=== PATIENT | male | born 1960 | race Caucasian/White ===

== ENCOUNTER 2023-04-26 06:31 | Day surgery (SDC) | payer BC, SELFPAY ==
--- NOTE | 2023-04-04 11:43 | CM ---
Patient is scheduled for an elective L Reverse TSA on 04/26/23- he is a same day patient. Spoke with patient's , Kizzy (who is a PT), prior to surgery. Introduced role of Orthopedic Navigator. She reports that she, patient, their son and
lhirwtin-vl-ycq live in a two story home. There is a ramp to enter and a stair glide to the second floor. He currently stays on the first floor. Patient is a T6 incomplete paraplegic. Currently he requires assist with getting in/out of the shower
but otherwise functions independently. He uses a power wheel chair. He also has a rolling walker, commode, shower seat and raised toilet seat. PCP is Dr. Robby Pierce.
Discussed orthopedic program and post surgical plans. Patient will return home when directed by surgeon. Reviewed MD follow up and transition to outpatient therapy. She is in agreement with tentative plan and states that she will be home with
patient, along with their son and gwbiqivo-vq-rnb. They will be able to assist patient if needed.
Patient will complete online education.
Plan: Orthopedic Navigator will be involved in the care of patient after surgery and will reassess discharge needs at that time.
[2023-04-11 09:21] VITALS: BMI 39.0
[2023-04-11 09:40] VITALS: BMI 39.0
[2023-04-11 10:52] LABS: Hematocrit 37.5 % (39.0-52.0); Hemoglobin 12.2 g/dL (13.0-18.0); Mean Corp Hgb Conc. 32.5 g/dL (33.0-37.0); Mean Corpuscular Hgb 32.9 pg (27.0-31.0); Mean Corpuscular Volume 101.1 fL (80.0-94.0); Mean Platelet Volume 12.4 fL (7.4-10.4); Platelet Count 187 10^3/uL (130-400); Red Blood Cell Count 3.71 10^6/uL (4.70-6.10); Red Cell Dist. Width 13.2 % (11.5-14.5); White Blood Cell Count 6.1 10^3/uL (4.8-10.8)
[2023-04-11 11:03] LABS: ALT (SGPT) 21 U/L (0-50); AST (SGOT) 29 U/L (17-59); Albumin 3.8 g/dl (3.5-5.0); Alkaline Phosphatase 111 U/L (38-126); Blood Urea Nitrogen 28 mg/dl (9-20); Calcium 9.1 mg/dl (8.4-10.2); Carbon Dioxide 31 mmol/L (22-30); Chloride 102 mmol/L (98-107); Estimated Creatinine Clearance 95 ml/min; Glucose 85 mg/dl (70-99); Sodium 140 mmol/L (135-145); Total Bilirubin 0.4 mg/dl (0.2-1.3); Total Protein 5.7 g/dl (6.3-8.2); eGFR > 60.00
[2023-04-11 12:21] LABS: Glycohemoglobin (HgbA1c) 5.4 % (4.0-5.6)
[2023-04-11 15:54] VITALS: BMI 39.0
[2023-04-26] VITALS (29 sets, daily range): BP systolic 80–158; BP diastolic 52–134
--- NOTE | 2023-04-26 06:41 | W.DS.TRANS ---
DC Summary - P[employer]asing [employer]
-
Discharge Instructions:
Discharge Diagnosis/Procedures L Reverse ANDRADE Suggs 04/26/23
Diet As tolerated
Activity No strenuous activity
Driving Restrictions No driving
Instructions:
Stand-Alone Forms:
Changes to Home Medications: No
Discharge Medications:
DC Medications w/original date entered in [employer]
cholecalciferol (vitamin D3) 25 mcg (1,000 unit) capsule (Vitamin D3) 1,000 unit PO DAILY 04/24/09
omega-3 fatty acids-fish oil 340 mg-1,000 mg capsule (Fish Oil) 1 cap PO BID 04/24/09
pregabalin 200 mg capsule (Lyrica) 200 mg PO BID 04/24/09
glucosamine BDk-U1-Rmslulhoj victoria 1,500 mg-400 unit-100 mg tablet (Osteo Bi-Flex (5-Loxin)) 1 ea PO BID 11/06/13
vilazodone 40 mg tablet (Viibryd) 40 mg PO DAILY 11/06/13
fentanyl 50 mcg/hr transdermal patch 50 mcg transdermal Q24H 01/14/20
montelukast 10 mg tablet 10 mg PO DAILY 01/14/20
multivitamin 1 ea PO DAILY 01/14/20
tamsulosin 0.4 mg capsule 0.4 mg PO HS 01/14/20
vit C 250 mg-vit E 90 mg-zinc 40 mg-copper 1 km-radqbt-xmvzfy capsule (PreserVision AREDS-2) 1 ea PO BID 01/14/20
pregabalin 200 mg capsule (Lyrica) 400 mg PO HS 01/15/20
clonazepam 1 mg tablet (Klonopin) 1.5 mg PO HS 04/04/23
cyanocobalamin (vitamin B-12) 1,000 mcg capsule 1,000 mcg PO DAILY 04/04/23
doxycycline hyclate 100 mg tablet 100 mg PO BID 04/04/23
fluconazole 200 mg tablet 200 mg PO DAILY 04/04/23
guselkumab 100 mg/mL subcutaneous auto-injector (Tremfya) 100 mg SC Q8W 04/04/23
metaxalone 800 mg tablet 800 mg PO TID 04/04/23
oxymorphone 5 mg tablet 5 mg PO TID 04/04/23
lisinopril 10 mg tablet 10 mg PO BID 04/11/23
mupirocin 2 % topical ointment 1 applic topical BID infection prevention #1 tube 04/11/23
prednisone 10 mg tablet 10 mg PO DAILY 04/11/23
aspirin 325 mg tablet 325 mg PO DAILY blood clot prevention #1 tab 04/26/23
diclofenac potassium 25 mg capsule (Zipsor) 25 mg PO BID #0 caps 04/26/23
docusate sodium 100 mg capsule (Colace) 100 mg PO BID stool softner #1 cap 04/26/23
magnesium hydroxide 400 mg/5 mL oral suspension (Milk of Magnesia) 30 ml PO HS PRN Constipation #1 mL 04/26/23
sennosides 8.6 mg tablet (Senokot) 17.2 mg PO BID laxative #2 tabs 04/26/23
Home Medication Changes
Pending Results: No
[2023-04-26] MEDS: TYLENOL 1000 MG PO (10:46)
[2023-04-26] MEDS: BACTROBAN NASAL 1 GRAM NASAL (10:46)
[2023-04-26] MEDS: NORMOSOL-R 1000 IV (10:49)
[2023-04-26] MEDS: ANCEF 5 IV (17:33)
--- NOTE | 2023-04-26 17:33 | PTCARENOTE ---
Addendum: During patient stay in PACU he was very difficult, non compliant to care rendered. Emotional support provided with explanations of treatments. Patient remained agitated and angry during stay and demanded discharge. He was given an
Incentive spirometer and would not open his eyes while teaching was rendered. Upon utilizing the IS he spit it out and refused to use. VSS stable and back to baseline, per Dr Baldemar yanez to transfer to [facility] for discharge.
== END 2023-04-26 18:00 | disposition home or self-care (01) ==
LOC: SDS 06:31
PROVIDERS: ATTENDING PHYSICIAN Specialist; FAMILY PHYSICIAN Internal Medicine; OTHER PHYSICIAN Internal Medicine Rheumatology; OTHER PHYSICIAN Physician Assistant Medical
DX: M24.412 Recurrent dislocation, left shoulder (principal)
CPT/HCPCS: 23472; 36415; 73020; 80053; 83036; 85027; 87070; 93005; C1713; C1776

== ENCOUNTER → 2023-04-27 13:00 | Outpatient (REF) | payer BC, SELFPAY ==
[2023-04-30 10:46] LABS: Amphetamines, Serum Negative ng/mL (Cutoff 20); Barbiturates, Serum Negative ng/mL (Cutoff 50); Benzodiazepines, Serum Negative ng/mL (Cutoff 50); Buprenorphine, Serum Negative ng/mL (Cutoff 1); Cannabinoids, Serum Negative ng/mL (Cutoff 20); Cocaine Metabolites, Serum Negative ng/mL (Cutoff 20); Methadone, Serum Negative ng/mL (Cutoff 25); Methamphetamine, Serum Negative ng/mL (Cutoff 20); Opiates, Serum Negative ng/mL (Cutoff 20); Oxycodone, Serum Negative ng/mL (Cutoff 20); Phencyclidine, Serum Negative ng/mL (Cutoff 10)
== END ==
LOC: REG 13:00
PROVIDERS: ATTENDING PHYSICIAN Internal Medicine Rheumatology; FAMILY PHYSICIAN Internal Medicine
DX: G89.4 Chronic pain syndrome (principal); Z79.899 Other long term (current) drug therapy
CPT/HCPCS: 36415; 80307

== ENCOUNTER 2023-05-26 17:02 | Outpatient (RCR) | payer BC, SELFPAY | END 2023-05-26 23:59 | disposition home or self-care (01) | LOC: RPT 17:02 | PROVIDERS: ATTENDING PHYSICIAN Specialist; FAMILY PHYSICIAN Internal Medicine | DX: Z47.1 Aftercare following joint replacement surgery (principal); Z96.612 Presence of left artificial shoulder joint; Z73.6 Limitation of activities due to disability | CPT/HCPCS: 97010; 97110; 97140; 97163 ==

== ENCOUNTER 2023-06-10 06:16 | Day surgery (SDC) | payer BC, SELFPAY ==
[2023-06-10] VITALS (7 sets, daily range): BP systolic 82–96; BP diastolic 49–75; BMI 32.9
[2023-06-10] MEDS: TYLENOL 1000 MG PO (10:00)
[2023-06-10] MEDS: NORMOSOL-R 1000 IV (10:01)
== END 2023-06-10 13:15 | disposition home or self-care (01) ==
LOC: SDS 06:16
PROVIDERS: ATTENDING PHYSICIAN Specialist
DX: T84.028A Dislocation of other internal joint prosthesis, initial encounter (principal); Z96.612 Presence of left artificial shoulder joint; S43.085A Other dislocation of left shoulder joint, initial encounter; X58.XXXA Exposure to other specified factors, initial encounter
CPT/HCPCS: 23655; 73030; 76000

== ENCOUNTER 2023-06-25 18:49 | Inpatient (IN) | payer BC, SELFPAY ==
[2023-06-25] VITALS (27 sets, daily range): BP systolic 89–140; BP diastolic 65–111; BMI 33.1
[2023-06-25] MEDS: NSS 500 IV (12:52)
[2023-06-25] MEDS: ZOFRAN 4 MG IV (12:53)
[2023-06-25] MEDS: DILAUDID 1 MG IV (12:53)
[2023-06-25 13:42] LABS: % Basophils 0.6 % (0-2); % Eosinophils 1.9 % (0-6); % Immature Granulocytes 0.5 % (0-0.5); % Lymphocytes 14.6 % (20.5-51.1); % Monocytes 7.4 % (1.7-9.3); Absolute Eosinophils 0.1 10^3/uL (0-0.7); Absolute Lymphocytes 0.9 10^3/uL (1.2-3.4); Absolute Monocytes 0.5 10^3/uL (0.1-0.6); Absolute Neutrophils 4.7 10^3/uL (1.4-6.5); Hematocrit 35.9 % (39.0-52.0); Hemoglobin 11.7 g/dL (13.0-18.0); Mean Corp Hgb Conc. 32.6 g/dL (33.0-37.0); Mean Corpuscular Hgb 30.6 pg (27.0-31.0); Mean Platelet Volume 12.3 fL (7.4-10.4); Nucleated Red Blood Cells % 0 % (-); Platelet Count 168 10^3/uL (130-400); Red Blood Cell Count 3.82 10^6/uL (4.70-6.10); Red Cell Dist. Width 13.7 % (11.5-14.5); White Blood Cell Count 6.2 10^3/uL (4.8-10.8)
[2023-06-25 13:56] LABS: ALT (SGPT) 20 U/L (0-50); AST (SGOT) 31 U/L (17-59); Albumin 4.3 g/dl (3.5-5.0); Alkaline Phosphatase 100 U/L (38-126); Blood Urea Nitrogen 22 mg/dl (9-20); Calcium 9.6 mg/dl (8.4-10.2); Carbon Dioxide 32 mmol/L (22-30); Chloride 102 mmol/L (98-107); Glucose 109 mg/dl (70-99); Potassium 4.8 mmol/L (3.5-5.1); Sodium 137 mmol/L (135-145); Total Bilirubin 0.4 mg/dl (0.2-1.3); Total Protein 6.3 g/dl (6.3-8.2); eGFR > 60.00
--- NOTE | 2023-06-25 13:56 | CON.ORTHO ---
Consultation - Orthopedics
History
Well known to me. Jesús is s/p left shoulder RSA for OA and chronic instability. Unfortunately dislocated post op, and was reduced in OR about 2 weeks ago. Re-dislocated again yesterday. Plan is for revision surgery next . Developed
increased pain and swelling last night, so presented to ER today.
Allergies / Home Medications
Allergy/AdvReac Type Severity Reaction Status Date / Time
amoxicillin [From Augmentin] Allergy Rash Verified 06/25/23 10:46
chlorhexidine Allergy severe Verified 06/25/23 10:46
raised rash
clavulanic acid Allergy Rash Verified 06/25/23 10:46
[From Augmentin]
diazepam [From Valium] Allergy AGITATION Verified 06/25/23 10:46
diflunisal [From Dolobid] Allergy palpitation Verified 06/25/23 10:46
s
ketamine Allergy AGITATION Verified 06/25/23 10:46
Sulfa (Sulfonamide Allergy Rash Verified 06/25/23 10:46
Antibiotics)
�Medication �Instructions �Recorded
cholecalciferol (vitamin D3) 25 5,000 unit PO DAILY 04/24/09
mcg (1,000 unit) capsule (Vitamin
D3)
pregabalin 200 mg capsule (Lyrica) 200 mg PO TID 04/24/09
glucosamine DGo-V7-Ckxfskkfp 1 ea PO BID 11/06/13
victoria 1,500 mg-400 unit-100 mg
tablet (Osteo Bi-Flex (5-Loxin))
vilazodone 40 mg tablet (Viibryd) 40 mg PO DAILY 11/06/13
fentanyl 50 mcg/hr transdermal 50 mcg transdermal Q24H 01/14/20
patch
montelukast 10 mg tablet 10 mg PO DAILY 01/14/20
multivitamin 1 ea PO DAILY 01/14/20
tamsulosin 0.4 mg capsule 0.4 mg PO HS 01/14/20
vit C 250 mg-vit E 90 mg-zinc 40 1 ea PO BID 01/14/20
mg-copper 1 dw-pidpbo-txizrx
capsule (PreserVision AREDS-2)
clonazepam 1 mg tablet (Klonopin) 1 mg PO HS 04/04/23
cyanocobalamin (vitamin B-12) 1,000 mcg PO DAILY 04/04/23
1,000 mcg capsule
doxycycline hyclate 100 mg tablet 100 mg PO BID 04/04/23
fluconazole 200 mg tablet 200 mg PO DAILY 04/04/23
guselkumab 100 mg/mL subcutaneous 100 mg SC Q8W 04/04/23
auto-injector (Tremfya)
metaxalone 800 mg tablet 800 mg PO TID 04/04/23
lisinopril 10 mg tablet 10 mg PO BID 04/11/23
prednisone 10 mg tablet 10 mg PO DAILY 04/11/23
docusate sodium 100 mg capsule 100 mg PO BID stool softner #1 cap 04/26/23
(Colace)
oxycodone 5 mg tablet 5 mg PO TID 04/26/23
aspirin 81 mg tablet,delayed 81 mg PO DAILY 06/09/23
release
diclofenac potassium 25 mg capsule 25 mg PO QID 06/09/23
(Zipsor)
omega 5-ich-vvo-fish oil 1,000 mg 1 cap PO DAILY 06/09/23
(120 mg-180 mg) capsule (Fish Oil)
Vital Signs / Lab Results
Left shoulder markedly swollen, with subjective paresthesias in his fingers. active ROM intact
Temp Pulse Resp BP Pulse Ox
98.1 F 91 12 124/89 100
06/25/23 13:49 06/25/23 13:49 06/25/23 13:49 06/25/23 13:49 06/25/23 13:49
06/25/23 12:51
x-ray left shoulder shows anterior dislocation of reverse prosthesis
Assessment / Plan
Reverse Total Shoulder dislocation.
Aspirated 120ml of bloody synovial fluid, sent for cultures
Attempted reduction with moderate sedation, unsuccessful
Will attempt reduction in OR under general anesthesia.
[2023-06-25 13:58] LABS: Erythrocyte Sed Rate 15 mm/hour (0-20)
--- NOTE | 2023-06-25 14:01 | ED.GENMED ---
History of Present Illness
General
Chief Complaint: Musculo-Skeletal Complaint
Source: patient, records and spouse
Exam Limitations: none
Time Seen by Provider: 06/25/23 12:16
Nursing documentation reviewed up to this point in time: agreed with
Travel History
Have you had any contact with someone who has COVID-19?: No
Do you have any symptoms of coronavirus? Fever > 100 degrees, chills, cough, shortness of breath, sore throat, loss of taste or smell, muscle aches, or headache?: No
History of Present Illness
History of Present Illness:
Patient is 62-year-old male who the beginning of May had a reverse shoulder replacement and approximately a week ago had a dislocation while sitting in a chair. Patient reportedly this week also had a dislocation went to see his orthopedist
yesterday and had x-rays which showed a dislocation. Patient is scheduled for revision. However patient was unable to sleep all night because of the pain and swelling. It seemed that the swelling became dramatically worse during the night.
Patient denies fever or chills. Patient is a paraplegic.
Past History
Past History
ED Past Medical History: HTN and Other (Psoriatic arthritis, chronic pain syndrome narcotic dependent, lumbar disc disease, fibromyalgia, kidney stones, paraplegia, DVT)
Social History
Tobacco: Non-smoker
Alcohol: Occasional
Personal:
Living: with family
Employment: Employed
Family History
Family History: Other
Review of Systems
Review of Systems
All Other Systems: Not applicable
Phy Exam
Physical Exam
Physical Exam:
Physical Exam
General: moderate distress, alert and appropriate, well nourished, well hydrated
HENT: Normocephalic, supple with no lymphadenopathy, no thyromegaly
Eyes: Clear sclera, conjuctiva without injection
Heart: Regular rhythm and rate. No S3, S4. No murmur. No NVD
Lungs: No respiratory distress, no stridor, lung sounds clear and equal bilaterally
Abdomen: Soft, nontender
Neuro: Alert and oriented x 3, CN II - XII intact, unchanged motor exam
Skin: no rash
Psychiatric: well kept. interactive and cooperative
Extremities: No cyanosis. Tender and swelling with increased pain on any movement
Scores
Heart Failure Risk
Heart Failure Risk Score: Not Applicable
Heart Score for Chest Pain Patients
STEMI patient?: Not applicable
Withdrawal Assessment of Alcohol
Withdrawal Assessment Completed?: Not applicable
Course
Orders/Labs/Results
Orders:
Orders
06/25/23 12:38
HYDROmorphone [Dilaudid] 1 mg IV NOW STA
Ondansetron Injectable [Zofran] 4 mg IV NOW STA
06/25/23 12:51
CRP [C-Reactive Protein] Urgent
Complete Blood Count/With Diff Urgent
Comprehensive Metabolic Panel Urgent
Sed Rate [Erythrocyte Sed Rate] Urgent
Blood Culture Q30M
PATRICIA Source: Blood/Venous
Specimen Description:
Blood Culture Q30M
PATRICIA Source: Blood/Venous
Specimen Description:
06/25/23 13:00
0.9% Sodium Chloride 500 ml [Nss] 500 ml IV 125 mls/hr
06/25/23 13:13
Propofol [Diprivan] 20 ml .ROUTE .STK-MED
06/25/23 13:47
CR Shoulder - Left 1 View Urgent
Comment: portable
Reason For Exam: post reduction
Abnormal Lab Results
06/25/23
12:51
RBC 3.82 L 10^6/uL
(4.70-6.10)
Hgb 11.7 L g/dL
(13.0-18.0)
Hct 35.9 L %
(39.0-52.0)
MCHC 32.6 L g/dL
(33.0-37.0)
MPV 12.3 H fL
(7.4-10.4)
Absolute Lymphs (auto) 0.9 L 10^3/uL
(1.2-3.4)
Lymphocytes % 14.6 L %
(20.5-51.1)
Carbon Dioxide 32 H mmol/L
(22-30)
BUN 22 H mg/dl
(9-20)
Glucose 109 H mg/dl
(70-99)
C-Reactive Protein 25.80 H mg/L
(0.0-10.00)
06/25/23 12:51
06/25/23 12:51
Vital Signs
Initial and Last Documented VS:
Initial Vital Signs
Temp Pulse Resp BP Pulse Ox
98.1 F 111 20 140/111 98
06/25/23 10:46 06/25/23 10:46 06/25/23 10:46 06/25/23 10:46 06/25/23 10:46
Last Documented Vital Signs
Temp Pulse Resp BP Pulse Ox
97.8 F 87 12 106/75 94
06/25/23 13:59 06/25/23 13:59 06/25/23 13:59 06/25/23 13:54 06/25/23 13:59
Procedures
Moderate Sedation
ASA Risk Score: Class II
Chart and allergies reviewed: Yes
Consent for anesthesia obtained: Yes
Time out completed (validating right patient & procedure): Yes
History of difficult intubation: No
Airway free of obstruction: Yes
Patient has a gag reflex: Yes
Patient is able to open mouth: Yes
Patient has no dentures: Yes
Patient has no loose teeth: Yes
Medication administered by Provider during Moderate Sedation: IV Propofol (mg)
Total dose administered: 70
Time drug administered: 13:44
Start Time: 13:44
Stop Time: 13:54
*Radiology
Radiology exam reviewed: preliminary read by ED provider (Dislocated left shoulder)
*Pulse Oximetry
Patient hypoxic: no
*EKG
Interpreted by ED Provider?: NA
*Braided Rug Maker Interpretation
Rate: normal
Interpretation: normal
Heart Rate: 90
Rhythm: sinus
*Critical Care Note
Total Time (30-74mins, 75-104mins- exclusive of procedures): Not Applicable
Update Note
Update Note:
Spoke with orthopedics and came in to try to reduce the shoulder while I provided sedation. They also performed arthrocentesis. Fluid was sent to the lab. Patient was not successfully reduced and will go to the OR for revision at this time.
ED Attending Note
-
Portions of this chart may have been created with voice recognition software.� Occasional wrong word or��sound alike� substitutions may have occurred due to the inherent limitations of voice recognition software.
Discharge Plan
Departure
Patient Disposition: Admit
Date of Disposition: 06/25/23
Time of Disposition: 14:10
Admit to: OR
Admit to doctor: [facility]
Presentation/result/management discussed w/ accepting MD/DO: ortho
Patient with high blood pressure during this ER visit?: Yes
Condition: Fair
Covid-19: Not Applicable
Discharge Problem:
Recurrent dislocation, left shoulder, History of left shoulder replacement
Prescriptions:
No Action
cholecalciferol (vitamin D3) [Vitamin D3] 1,000 UNIT capsule
5,000 unit PO DAILY
pregabalin [Lyrica] 200 MG capsule
200 mg PO TID
vilazodone [Viibryd] 40 MG tablet
40 mg PO DAILY
fyuefoqoxhv-G9-Hcqflcrdr serr [Osteo Bi-Flex (5-Loxin)] 1 EACH tablet
1 ea PO BID
Hold Instructions: Resume on 05/04/23.
fentanyl 50 MCG patch 72 hour
50 mcg transdermal Q24H
multivitamin 1 EACH tablet
1 ea PO DAILY
tamsulosin 0.4 MG capsule
0.4 mg PO HS
montelukast 10 MG tablet
10 mg PO DAILY
PreserVision AREDS-2 1 EACH capsule
1 ea PO BID
Hold Instructions: Resume on 05/04/23.
fluconazole 200 mg Tablet
200 mg PO DAILY
clonazepam [Klonopin] 1 mg Tablet
1 mg PO HS
doxycycline hyclate 100 mg Tablet
100 mg PO BID
metaxalone 800 mg Tablet
800 mg PO TID
cyanocobalamin (vitamin B-12) 1,000 mcg Capsule
1,000 mcg PO DAILY
Tremfya 100 mg/mL Auto-Injector
100 mg SC Q8W
Rx Instructions:
last dose 05/16/2023
prednisone 10 mg Tablet
10 mg PO DAILY
lisinopril 10 mg Tablet
10 mg PO BID
docusate sodium [Colace] 100 mg capsule
100 mg PO BID Qty: 1 0RF
oxycodone 5 mg Tablet
5 mg PO TID
diclofenac potassium [Zipsor] 25 MG capsule
25 mg PO QID
aspirin [Aspir-81] 81 mg Tablet,Delayed Release (Dr/Ec)
81 mg PO DAILY
omega 0-fac-nwr-fish oil [Fish Oil] 1,000 mg (120 mg-180 mg) Capsule
1 cap PO DAILY
Referrals:
Robby Pierce MD [Family Provider] -
Interventions
Interventions:
*Risk Screen - Suicide Last Done: 06/25/23 10:46
*General Assessment Last Done: 06/25/23 10:46
*Neglect/Abuse Screening Last Done: 06/25/23 10:46
*ED COVID-19 Vaccine History Last Done: 06/25/23 11:33
ED-Musculoskeletal Assessment Last Done: 06/25/23 11:33
Discharge Date and Time
Print Language: PERSIAN
--- NOTE | 2023-06-25 16:01 | HPS.HSE ---
Family Physician
-
Family Physician: Robby Pierce
Chief Complaint
-
left shoulder dislocation
History of Present Illness
62 year old with PMH for HTN, psoriatic arthritis, chronic pain syndrome, narcotic dependent, lumbar disc disease, fibromyalgia, kidney stones, DVT presented to us with left shoulder dislocation. patient underwent left shoulder reverse total
shoulder arthroplasty on 04/26/2023. had dislocation again, underwent reduction on 06/09 again. he dislocated again yesterday. plan was revision next Tuesday. he was noted to increased pain and swelling last night, which prompted him to come to the
ER. orthopedics attempted reduction,which was unsuccessful. at present patient very sleepy. denied any pain at present. arousable easily but falling sleepy. denied chest pain, sob. denied abdominal pain, n,v, d. denied dysuria or hematuria.
Medical History
Past Medical History
Past Medical History: Reports Other
Additional Past Medical History:
allergic rhinitis
HTn
BPH
paraplegics
Past Surgical History: Reports Other
Additional Past Surgical History:
multiple back surgery
Social History
Tobacco: Non-smoker
Alcohol: None
Drug: None
Personal:
Living: With Family
Family History
Family History: Not pertinent
Allergies / Home Medications
Allergies reflects when Allergies were last updated in [employer].
Home Medications with original date entered in [employer]
Allergy/Medication List:
Allergies
Allergy/AdvReac Type Severity Reaction Status Date / Time
amoxicillin [From Augmentin] Allergy Rash Verified 06/25/23 10:46
chlorhexidine Allergy severe Verified 06/25/23 10:46
raised rash
clavulanic acid Allergy Rash Verified 06/25/23 10:46
[From Augmentin]
diazepam [From Valium] Allergy AGITATION Verified 06/25/23 10:46
diflunisal [From Dolobid] Allergy palpitation Verified 06/25/23 10:46
s
ketamine Allergy AGITATION Verified 06/25/23 10:46
Sulfa (Sulfonamide Allergy Rash Verified 06/25/23 10:46
Antibiotics)
Home Medications
cholecalciferol (vitamin D3) 25 mcg (1,000 unit) capsule (Vitamin D3) 5,000 unit PO DAILY 04/24/09
pregabalin 200 mg capsule (Lyrica) 200 mg PO TID 04/24/09
glucosamine FFh-D3-Cgmjfhjvf victoria 1,500 mg-400 unit-100 mg tablet (Osteo Bi-Flex (5-Loxin)) 1 ea PO BID 11/06/13
vilazodone 40 mg tablet (Viibryd) 40 mg PO DAILY 11/06/13
fentanyl 50 mcg/hr transdermal patch 50 mcg transdermal Q24H 01/14/20
montelukast 10 mg tablet 10 mg PO DAILY 01/14/20
multivitamin 1 ea PO DAILY 01/14/20
tamsulosin 0.4 mg capsule 0.4 mg PO HS 01/14/20
vit C 250 mg-vit E 90 mg-zinc 40 mg-copper 1 qw-oembia-myctci capsule (PreserVision AREDS-2) 1 ea PO BID 01/14/20
clonazepam 1 mg tablet (Klonopin) 1 mg PO HS 04/04/23
cyanocobalamin (vitamin B-12) 1,000 mcg capsule 1,000 mcg PO DAILY 04/04/23
doxycycline hyclate 100 mg tablet 100 mg PO BID 04/04/23
fluconazole 200 mg tablet 200 mg PO DAILY 04/04/23
guselkumab 100 mg/mL subcutaneous auto-injector (Tremfya) 100 mg SC Q8W 04/04/23
metaxalone 800 mg tablet 800 mg PO TID 04/04/23
lisinopril 10 mg tablet 10 mg PO BID 04/11/23
prednisone 10 mg tablet 10 mg PO DAILY 04/11/23
docusate sodium 100 mg capsule (Colace) 100 mg PO BID stool softner #1 cap 04/26/23
oxycodone 5 mg tablet 5 mg PO TID 04/26/23
aspirin 81 mg tablet,delayed release 81 mg PO DAILY 06/09/23
diclofenac potassium 25 mg capsule (Zipsor) 25 mg PO QID 06/09/23
omega 3-euc-crf-fish oil 1,000 mg (120 mg-180 mg) capsule (Fish Oil) 1 cap PO DAILY 06/09/23
Review of Systems
-
Constitutional: Reports No Symptoms
EENT: Reports No Symptoms
Respiratory: Reports No Symptoms
Cardiac: Reports No Symptoms
Abdomen/GI: Reports No Symptoms
: Reports No Symptoms
Musculoskeletal: Reports No Symptoms
Skin: Reports No Symptoms
Neurological: Reports No Symptoms
Endocrine: Reports No Symptoms
Hematologic/Lymphatic: Reports No Symptoms
Psych: Reports No Symptoms
Physical Exam
Vital Signs
Vital Signs
Temp Pulse Resp BP Pulse Ox
97 F 89 15 97/72 97
06/25/23 15:20 06/25/23 15:35 06/25/23 15:35 06/25/23 15:35 06/25/23 14:20
Physical Exam
General: Well Developed, Well Nourished and No Apparent Distress
HEENT: NormoCephalic, Moist mucous membranes and Atraumatic
Respiratory: Clear
Cardiac: S1/S2 and Regular Rhythm; No Murmur or Rub
GI: Soft, Non Tender, Non Distended and Normal Bowel Sounds; No Organomegaly
Rectal: Deferred by Provider
Musculoskeletal: No Clubbing, No Cyanosis, No Edema and Other (left shoulder swelling)
Skin: No Rash
Neuro: AO x 3 and Nonfocal/grossly intact
Psych: Calm
Laboratory Results
-
06/25/23 12:51
06/25/23 12:51
Laboratory Results
Total Bilirubin 0.4 mg/dl (0.2-1.3) 06/25/23 12:51
AST 31 U/L (17-59) 06/25/23 12:51
ALT 20 U/L (0-50) 06/25/23 12:51
Alkaline Phosphatase 100 U/L (38-126) 06/25/23 12:51
Data Reviewed
-
Lab Data: Labs Reviewed by me
Impression/Plan
-
#dislocation of left reverse total shoulder
-unable to reduced in OR
- scheduled for open reduction on Tuesday and revision of components
-orthopedic following
-x ray shoulder with Left reverse total shoulder arthroplasty with anterior dislocation of the humeral prosthesis relative to the glenoid prosthesis
-hold pain meds until fully awake
-NPO until fully awake
#chornic pain syndrome/paraplegic
-continue with home meds, once meds are reconciled
#essential htn
-resume lisinopril, once med rec complete
#psoriatic arthritis
#insomnia/anxiety
-will continue meds, once med rec completed
#DVT prophylaxis
-Lovenox
#CODE status
-full code
--- NOTE | 2023-06-25 16:30 | W.PN.UPDATE ---
Update Note
Progress Note Update
I saw and examined the patient.
The JEWEL BEARING TURNER's note was reviewed and I agree with the note.
This note is an addendum to Lexx Denson JEWEL [employer]ARING TURNER
Comment:
62 male past medical history of obstructive sleep apnea, hypertension, depression, rotator cuff surgery status post arthroscopy, epidural abscess with osteomyelitis with L5 and S1 status post drainage status post fusion with bone graft and screws
multiple surgeries, hyperlipidemia, psoriatic arthritis, psoriasis, chronic wheelchair-bound who underwent left total shoulder replacement on 04/26/2023 and went to see outpatient orthopedics Slight irregularity was seen on the x-ray. Patient
subsequently had a dislocation which was unsuccessful in the outpatient office. Patient with severe pain and decided come into the ER. Patient underwent to the OR for left shoulder reduction which was unsuccessful by Dr. Suggs.�Patient will be
admitted with total revision surgery on Tuesday. Patient is currently seen in PACU denies any pain. Patient does falls asleep during our conversation. Patient did receive pain medication in the ER per anesthesia note.
General in no acute distress
Cardiac S1-S2 regular rate rhythm
Lungs are clear to auscultation frontal
Abdomen positive bowel sounds soft nontender, obesity
Extremities no edema, left upper extremity in sling
Impression
Left shoulder surgery status post dislocation
Unable to be reduced in the OR
Continue with pain control
Orthopedic following
Plan will be for revision surgery on 06/27
Shoulder Xray-Left reverse total shoulder arthroplasty with anterior dislocation of the humeral prosthesis relative to the glenoid prosthesis
Keep n.p.o. till patient more awake. Patient currently falling asleep conversation likely due to pain medications in the operating room.
Start patient on gentle IV fluids.
Chronic paraplegia
Chronic wheelchair-bound
Chronic opioid dependent on a daily basis
Continue with home pain medication regimen
Patient does have a fentanyl patch currently
Confirm home medication and restart
Primary hypertension
Currently controlled
Restart home regimen
Insomnia/anxiety
Restart home meds once confirmed
Psoriatic arthritis
Pain control
DVT prophylaxis�Lovenox
Await medication reconciliation
I spent a total of 78 minutes with the patient or on the floor. More than 50% of this time involved counseling and coordination of care.
[2023-06-25] MEDS: NSS 1000 IV (16:41)
--- NOTE | 2023-06-25 17:25 | PTCARENOTE ---
Pt received from the PACU via bed Transport was w/o incident. Pt is drowsy and easily awakened. VSS, Pt is afebrile. Left shoulder w/ 2+ Edema, incision well approximated w/ surg. glue,. sm. 2x2 guaze dressing noted left shoulder w/o drainage. Pt's
HRR, Lungs are clear, resp. easy. Left brachial and radial pulse normal. Pt's hand/fingers warm w/good cap refill. Pt able to wiggle fingers. Pt and Pt's instructed on plan of care. Both Pt and able to verbalize understanding of
instructions.
--- NOTE | 2023-06-25 20:30 | PTCARENOTE ---
Addendum entered by Anna Charlton RN 06/26/23 00:50:
Also inquiring reasoning for IVF, pt. educated on purpose and right to refuse medication and pt. requesting to have fluids stopped. Fluids removed. Mary PO intake well.
Original Note:
Pt. refusing tele monitor, explained the purpose of heart monitoring and pt. requesting to have it taken off. Tele removed, farzaneh CHAINER notified. Pt. also declining lovenox injection, explained the purpose of anticoagulants during hospital stays and
pt. declined administration. Pt. requesting a dose of fluconazole as he had missed his daily dose d/t being in the OR. Farzaneh CHAINER added stat dose.
[2023-06-25] MEDS: LYRICA 200 MG PO (21:15)
[2023-06-25] MEDS: COLACE 100 MG PO (21:15)
[2023-06-25] MEDS: VIBRAMYCIN 100 MG PO (21:15)
[2023-06-25] MEDS: ZESTRIL 10 MG PO (21:15)
[2023-06-25] MEDS: FLOMAX 0.400000000000000022 MG PO (21:16)
[2023-06-25] MEDS: DIFLUCAN 200 MG PO (21:16)
[2023-06-25] MEDS: SKELAXIN 800 MG PO (21:16)
[2023-06-25] MEDS: ROXICODONE 5 MG PO (21:16)
[2023-06-25] MEDS: KLONOPIN 1 MG PO (21:17)
[2023-06-25] MEDS: DURAGESIC 50 MCG/HR PATCH 1 PATCH TRANSDERM (21:22)
[2023-06-26] MEDS: DILAUDID 0.5 MG IV (00:30)
[2023-06-26] MEDS: FLUSH (NSS) 2 FLUSH IV ×2 (00:31→03:52)
[2023-06-26] MEDS: NSS IV (00:51)
[2023-06-26 03:35] VITALS: BP 94/54
[2023-06-26] MEDS: TORADOL 15 MG IV (03:50)
[2023-06-26] MEDS: BENADRYL 25 MG PO (04:13)
--- NOTE | 2023-06-26 05:09 | PTCARENOTE ---
L shoulder pain uncontrolled on pt's usual pain medication and no PRNs prescribed. House LAB COORDINATOR contacted and dilaudid, toradol, and benadryl administered throughout the night in an attempt to help pt. get comfortable and sleep with no relief - see MAR
for admin times. L shoulder swelling getting increasingly worse, starting at +2 @2000 and currently at +3, visibly tight and shiny skin, and small amounts of serosang drainage from previous aspiration site. Oncoming ortho PA made aware via TT and
will pass current assessment along in shift change.
[2023-06-26 07:15] LABS: Hemoglobin 9.4 g/dL (13.0-18.0); Mean Corp Hgb Conc. 31.3 g/dL (33.0-37.0); Mean Corpuscular Hgb 30.2 pg (27.0-31.0); Mean Corpuscular Volume 96.5 fL (80.0-94.0); Mean Platelet Volume 12.4 fL (7.4-10.4); Platelet Count 160 10^3/uL (130-400); Red Blood Cell Count 3.11 10^6/uL (4.70-6.10); Red Cell Dist. Width 13.7 % (11.5-14.5); White Blood Cell Count 5.8 10^3/uL (4.8-10.8)
[2023-06-26 07:34] LABS: Blood Urea Nitrogen 28 mg/dl (9-20); Calcium 9.2 mg/dl (8.4-10.2); Carbon Dioxide 29 mmol/L (22-30); Chloride 103 mmol/L (98-107); Estimated Creatinine Clearance > 125 ml/min; Glucose 89 mg/dl (70-99); Potassium 4.5 mmol/L (3.5-5.1); Sodium 137 mmol/L (135-145); eGFR > 60.00
[2023-06-26 07:38] VITALS: BP 132/83
[2023-06-26] MEDS: ROXICODONE 5 MG PO (07:39)
[2023-06-26] MEDS: SKELAXIN 800 MG PO (07:39)
[2023-06-26] MEDS: DELTASONE 10 MG PO (07:39)
[2023-06-26] MEDS: VIBRAMYCIN 100 MG PO (07:39)
[2023-06-26] MEDS: SINGULAIR 10 MG PO (07:40)
[2023-06-26] MEDS: COLACE 100 MG PO (07:40)
[2023-06-26] MEDS: LYRICA 200 MG PO (07:41)
[2023-06-26] MEDS: ZESTRIL 10 MG PO (07:42)
[2023-06-26] MEDS: DIFLUCAN 200 MG PO (07:42)
--- NOTE | 2023-06-26 09:40 | W.PN.UPDATE ---
Update Note
Progress Note Update
Orthopedic surgery update note:
Patient seen and examined. Spoke to patient and his . Pain is currently controlled. He still reports some swelling at his left shoulder. Distally neurovascularly intact at the left upper extremity. They would like to go home. Plan is for
discharge home today and follow-up on Tuesday for revision left shoulder surgery with Dr. Suggs. They were encouraged to reach out with any questions.
--- NOTE | 2023-06-26 11:08 | W.PN.HOSP.TC ---
Today's Communication/Plan
-
dc home
OP f/u
Assessment / Plan
Assessment / Plan
Impression
Left shoulder surgery status post dislocation
Unable to be reduced in the OR
Continue with pain control
Orthopedic following
Plan will be for revision surgery on 06/27-as OP. Patient wants to go home-Per orthopedic okay to dc and come back for schedule procedure. Pt states if any more pain he will f/u with Dr. Suggs in office if needed before surgery.
Shoulder Xray-Left reverse total shoulder arthroplasty with anterior dislocation of the humeral prosthesis relative to the glenoid prosthesis
tolerated diet.
Chronic paraplegia
Chronic wheelchair-bound
Chronic opioid dependent on a daily basis
Continue with home pain medication regimen
Patient does have a fentanyl patch currently
Confirm home medication and restart
Chronic osteomyelitis
on Doxy
Primary hypertension
Currently controlled
Restart home regimen
Insomnia/anxiety
Restart home meds once confirmed
Psoriatic arthritis
Pain control
DVT ppx-lovenox
d/w with spouse at bedside in details
d/w with orthopedic
More than 30 minutes spent in discharge including
Final examination of the patient
Summarizing hospital stay
Instructions for continuing care to all relevant caregivers
Preparation of discharge records, prescriptions, and referral forms
Total time spent (in minutes): 45
Anticipated Discharge: Today
Subjective/Interval History
-
Date of Service: June 26, 2023
states of some pain at left shoulder
wants to go home
Objective Data
-
Labs:
Laboratory Results
06/26/23
06:28
WBC 5.8
Hgb 9.4 L
Hct 30.0 L
Plt Count 160
Sodium 137
Potassium 4.5
Chloride 103
Carbon Dioxide 29
BUN 28 H
Creatinine 0.6 L
Glucose 89
Calcium 9.2
Vital Signs:
Vital Signs
Temp Pulse Resp BP Pulse Ox
98.1 F 75 16 132/83 96
06/26/23 07:38 06/26/23 07:38 06/26/23 07:38 06/26/23 07:38 06/26/23 07:38
I&O
06/25/23 06/26/23 06/27/23
06:59 06:59 06:59
Intake Total 780 / 780
Balance 780 / 780
Physical Exam
-
General: Well Developed and No Apparent Distress
HEENT: Normocephalic, Atraumatic and Moist Mucous Membranes
Respiratory: Clear to Auscultation
Cardiac: Regular Rhythm and S1/S2; Negative Murmur, Rub or Gallop
GI: Soft, Nontender, Nondistended and Normal Bowel Sounds; Negative Organomegaly
Rectal: Deferred by Provider
Musculoskeletal: No Clubbing, No Cyanosis, No Edema and Other (Left shoulder swelling)
Skin: Negative Rash
Neuro: Awake, AO x 3 and Nonfocal/Grossly Intact
--- NOTE | 2023-06-26 11:58 | CM ---
Patient has been medically cleared for discharge to home with no additional skilled needs. Patient discharged and left building prior to initial assessment completion. Patient arranged for transport home.
--- NOTE | 2023-06-26 13:18 | W.DCSUMMARY ---
Discharge Summary
Discharge Data
Date of Admission: 06/25/23
Date of Discharge: 06/26/23
-
Pending Results: No
Hospital Course
62-year-old male past medical history of chronic paraplegia, chronic wheelchair-bound, chronic opiate dependent on daily basis, chronic osteo, hypertension, cirrhotic arthritis who is presented with left shoulder pain. Patient was found to have a
left shoulder dislocation. Patient did undergo recent left shoulder surgery. Patient underwent to the operating room. Patient left shoulder was not able to be reduced in the operating room. Patient was admitted to medicine service. Overnight
pain was controlled. Subsequently patient was eval by orthopedic doctor Dr Domingo discussed with patient and spouse with plan for outpatient follow-up. Patient states pain is controlled and would like to be discharged. Orthopedic agreed for
discharge planning with outpatient follow-up as patient already has a scheduled revision left shoulder surgery with Dr. Suggs on 06/28/23. Discussed with spouse at bedside on discharge planning and she was agreeable and amenable to it.
Discharge Plan
-
Patient Disposition: Home (Routine Discharge)
Discharge Diagnosis/Procedures: Dislocation of left shoulder
Condition: Fair
Diet: As tolerated
Activity: No restrictions and With assistance
Driving Restrictions: Not until seen by your Dr
Referrals:
Robby Pierce MD [Family Provider] -
Prescriptions:
Continued
cholecalciferol (vitamin D3) [Vitamin D3] 1,000 UNIT capsule
5,000 unit PO DAILY
pregabalin [Lyrica] 200 MG capsule
200 mg PO TID
vilazodone [Viibryd] 40 MG tablet
40 mg PO DAILY
qykmyqcixgh-T5-Wsyoaqghp serr [Osteo Bi-Flex (5-Loxin)] 1 EACH tablet
1 ea PO BID
Hold Instructions: Resume on 05/04/23.
fentanyl 50 MCG patch 72 hour
50 mcg transdermal Q24H
Rx Instructions:
Please note:Change every 24 hours!
multivitamin 1 EACH tablet
1 ea PO DAILY
tamsulosin 0.4 MG capsule
0.4 mg PO HS
montelukast 10 MG tablet
10 mg PO DAILY
PreserVision AREDS-2 1 EACH capsule
1 ea PO BID
Hold Instructions: Resume on 05/04/23.
fluconazole 200 mg Tablet
200 mg PO DAILY
clonazepam [Klonopin] 1 mg Tablet
1 mg PO HS
doxycycline hyclate 100 mg Tablet
100 mg PO BID
metaxalone 800 mg Tablet
800 mg PO TID
cyanocobalamin (vitamin B-12) 1,000 mcg Capsule
1,000 mcg PO DAILY
Tremfya 100 mg/mL Auto-Injector
100 mg SC Q8W
Rx Instructions:
last dose 05/16/2023
prednisone 10 mg Tablet
10 mg PO DAILY
lisinopril 10 mg Tablet
10 mg PO BID
docusate sodium [Colace] 100 mg capsule
100 mg PO BID Qty: 1 0RF
oxycodone 5 mg Tablet
5 mg PO TID
diclofenac potassium [Zipsor] 25 MG capsule
25 mg PO QID
aspirin [Ecotrin Low Strength] 81 mg Tablet,Delayed Release (Dr/Ec)
81 mg PO DAILY
omega 6-icv-pal-fish oil [Fish Oil] 1,000 mg (120 mg-180 mg) Capsule
1 cap PO DAILY
Discharge Orders:
Discharge Patient (As Directed); Ordered 06/26/23
Ordered By: Waqas Sanchez
Discharge Date and Time
Discharge Date/Time: 06/26/23 11:30
Print Language: AZERI
== END 2023-06-26 11:30 | disposition home or self-care (01) | DRG 563 ==
LOC: 2 SOUTH 18:49
PROVIDERS: Registered Nurse; ADMITTING PHYSICIAN Hospitalist; CONSULT PHYSICIAN Specialist; EMERGENCY PHYSICIAN Emergency Medicine; FAMILY PHYSICIAN Internal Medicine
DX: M24.412 Recurrent dislocation, left shoulder (principal); G82.20 Paraplegia, unspecified; Z96.612 Presence of left artificial shoulder joint; I10 Essential (primary) hypertension; L40.50 Arthropathic psoriasis, unspecified; F41.9 Anxiety disorder, unspecified; G47.00 Insomnia, unspecified
CPT/HCPCS: 23650; 73020; 76000; 80048; 80053; 85025; 85027; 85652; 86140; 87040; 87070; 87075; 87205; 96361; 96374; 96375; 99152; 99285

== ENCOUNTER 2023-06-28 06:12 | Inpatient (IN) | payer BC, SELFPAY ==
--- NOTE | 2023-06-27 09:03 | CM ---
Patient is scheduled for a Revision L Reverse TSA on 06/28/23- he is a same day patient. Spoke with patient's , Kizzy (who is a PT), prior to surgery. Patient had a L Reverse TSA on 04/25/23. Reintroduced role of Orthopedic Navigator. She reports
that she, patient, their son and rhvinatb-bt-phe live in a two story home. There is a ramp to enter and a stair glide to the second floor. He currently stays on the first floor. Patient is a T6 incomplete paraplegic. Currently he requires assist
with dressing and getting in/out of the shower but otherwise functions independently. He uses a power wheel chair. He also has a rolling walker, commode, shower seat and raised toilet seat. PCP is Dr. Robby Pierce.
Discussed orthopedic program and post surgical plans. Patient will return home when directed by surgeon. Reviewed MD follow up and transition to outpatient therapy. She is in agreement with tentative plan and states that she will be home with
patient, along with their son and [id number]. They will be able to assist patient if needed.
Patient does not need to complete online education.
Plan: Orthopedic Navigator will be involved in the care of patient after surgery and will reassess discharge needs at that time.
[2023-06-28] VITALS (13 sets, daily range): BP systolic 93–119; BP diastolic 64–89; BMI 32.1
[2023-06-28] MEDS: BACTROBAN NASAL 1 GRAM NASAL (07:30)
[2023-06-28] MEDS: NORMOSOL-R 1000 IV (08:01)
[2023-06-28] MEDS: VANCOCIN 300 MG IV (08:02)
[2023-06-28] MEDS: TYLENOL 1000 MG PO (08:02)
[2023-06-28] MEDS: VANCOCIN 300 ML IV (08:02)
--- NOTE | 2023-06-28 09:53 | CM ---
Addendum entered by Cassandra Malagon 06/30/23 12:02:
Spoke with patient's who states that [facility] is now unable to see patient. She requested a referral to [facility]. Call placed to [facility]; spoke with Alexia. Referral made and clinical faxed.
Original Note:
Patient admitted as planned for L Reverse TS Revision. Spoke with patient's . Discussed discharge plans. The plan continues to be for patient to return home at discharge. She, her son and ftjjjxic-yh-pav will be able to provide needed support.
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
VN referral was completed and sent to [facility] through [facility] [employer] with request for start of care on 06/28.
[2023-06-28] MEDS: ANCEF 5 IV (15:04)
== END 2023-06-28 15:15 | disposition home or self-care (01) | DRG 517 ==
LOC: AMOS 06:12
PROVIDERS: ADMITTING PHYSICIAN Specialist
PROC: 0RWK0JZ Revision of Synthetic Substitute in Left Shoulder Joint, Open Approach (ICD-10-PCS; 2023-06-28)
DX: T84.028A Dislocation of other internal joint prosthesis, initial encounter (principal); S43.005A Unspecified dislocation of left shoulder joint, initial encounter; Y79.2 Prosthetic and other implants, materials and accessory orthopedic devices associated with adverse incidents; Z96.619 Presence of unspecified artificial shoulder joint
CPT/HCPCS: 73020; 87070; 87075; 87205; C1713; C1776

== ENCOUNTER 2023-08-25 17:29 | Outpatient (RCR) | payer BC, SELFPAY | END 2023-08-25 23:59 | disposition home or self-care (01) | LOC: RPT 17:29 | PROVIDERS: ATTENDING PHYSICIAN Specialist; FAMILY PHYSICIAN Internal Medicine | DX: M25.512 Pain in left shoulder (principal); Z96.612 Presence of left artificial shoulder joint; R26.1 Paralytic gait; R26.89 Other abnormalities of gait and mobility; Z73.6 Limitation of activities due to disability | CPT/HCPCS: 97010; 97110; 97116; 97140; 97164 ==

== ENCOUNTER 2023-09-22 17:38 | Outpatient (RCR) | payer BC, SELFPAY | END 2023-09-22 23:59 | disposition home or self-care (01) | LOC: RPT 17:38 | PROVIDERS: ATTENDING PHYSICIAN Specialist; FAMILY PHYSICIAN Internal Medicine | DX: Z47.1 Aftercare following joint replacement surgery (principal); Z96.619 Presence of unspecified artificial shoulder joint; R26.1 Paralytic gait; R26.89 Other abnormalities of gait and mobility; Z73.6 Limitation of activities due to disability | CPT/HCPCS: 97014; 97110; 97112; 97140; 97530 ==

== ENCOUNTER 2023-09-28 16:35 | Outpatient (RCR) | payer BC, SELFPAY | END 2023-09-28 23:59 | disposition home or self-care (01) | LOC: RPT 16:35 | PROVIDERS: ATTENDING PHYSICIAN Specialist; FAMILY PHYSICIAN Internal Medicine | DX: Z47.1 Aftercare following joint replacement surgery (principal); Z96.612 Presence of left artificial shoulder joint; R26.1 Paralytic gait; R26.89 Other abnormalities of gait and mobility; Z73.6 Limitation of activities due to disability | CPT/HCPCS: 97110; 97530 ==

== ENCOUNTER 2023-10-12 13:11 | Emergency (ER) | payer BC, SELFPAY ==
[2023-10-12] VITALS (14 sets, daily range): BP systolic 93–124; BP diastolic 71–97; BMI 31.7
--- NOTE | 2023-10-12 15:01 | ED.GENMED ---
History of Present Illness
<Shefali Russ PA-C - Last Filed: 10/12/23 17:19>
General
Chief Complaint: Musculo-Skeletal Complaint
Source: patient
Exam Limitations: none
Time Seen by Provider: 10/12/23 14:24
Nursing documentation reviewed up to this point in time: agreed with
History of Present Illness
History of Present Illness:
PT is a 62 y/o M paraplegia, htn, L shoulder replacmenet, revised 06/[address] de dios
with dislocation this morning when he was getting into his chair
he has no numbness/tingling/weakness
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
called dr. de dios who said he would come to reduce he patient's shoulder
pt's pain is onctorlled as long as she is not moving
Past History
<Shefali Russ PA-C - Last Filed: 10/12/23 17:19>
Past History
ED Past Medical History: HTN and Other (Psoriatic arthritis, chronic pain syndrome narcotic dependent, lumbar disc disease, fibromyalgia, kidney stones, paraplegia, DVT)
Social History
Tobacco: Non-smoker
Alcohol: Occasional
Personal:
Living: with family
Employment: Employed
Family History
Family History: Other
Review of Systems
<Shefali Russ PA-C - Last Filed: 10/12/23 17:19>
Review of Systems
Allergies reviewed?: Yes
All Other Systems: Not applicable
Phy Exam
<SHABANA Delgado Last Filed: 10/12/23 17:19>
Physical Exam
Physical Exam:
GENERAL: Alert , in no apparent distress
CARDIAC: Regular rate and rhythm .
LUNGS: Clear breath sounds bilaterally, no acute respiratory distress, no wheezes/rales/rhonchi
ABDOMEN: Soft, without focal tenderness, no r/g, no cvat, normal bowel sounds
NEUROLOGICAL: Alert and oriented, paraplegia
SKIN: Warm and dry, skin intact.
MUSCULOSKELETAL: anterior shoulder dislcoatin L side, limlited ROM
normal sensation and strength distally
nv intact
PSYCH: Normal and appropriate interaction.
Course
<Shefali Russ PA-C - Last Filed: 10/12/23 17:19>
Orders/Labs/Results
Orders:
Orders
10/12/23 13:33
Shoulder, Left, Trauma CR [CR Shoulder, Trauma - Left] Urgent
Comment: dislocation
Reason For Exam: pain
10/12/23 15:34
Propofol [Diprivan] 20 ml .ROUTE .STK-MED
10/12/23 15:55
Propofol [Diprivan] 20 ml .ROUTE .STK-MED
Vital Signs
Initial and Last Documented VS:
Initial Vital Signs
Temp Pulse Resp BP Pulse Ox
98.1 F 94 18 121/80 97
10/12/23 13:28 10/12/23 13:28 10/12/23 13:28 10/12/23 13:28 10/12/23 13:28
Last Documented Vital Signs
Temp Pulse Resp BP Pulse Ox
97.9 F 77 17 106/89 97
10/12/23 16:30 10/12/23 16:45 10/12/23 16:45 10/12/23 16:45 10/12/23 16:35
<Salvador Sharp DO - Last Filed: 10/12/23 17:44>
Orders/Labs/Results
Orders:
Orders
10/12/23 13:33
Shoulder, Left, Trauma CR [CR Shoulder, Trauma - Left] Urgent
Comment: dislocation
Reason For Exam: pain
10/12/23 15:34
Propofol [Diprivan] 20 ml .ROUTE .STK-MED
10/12/23 15:55
Propofol [Diprivan] 20 ml .ROUTE .STK-MED
Vital Signs
Initial and Last Documented VS:
Initial Vital Signs
Temp Pulse Resp BP Pulse Ox
98.1 F 94 18 121/80 97
10/12/23 13:28 10/12/23 13:28 10/12/23 13:28 10/12/23 13:28 10/12/23 13:28
Last Documented Vital Signs
Temp Pulse Resp BP Pulse Ox
97.9 F 77 17 106/89 97
10/12/23 16:30 10/12/23 16:45 10/12/23 16:45 10/12/23 16:45 10/12/23 16:35
Procedures
<Salvador Sharp DO - Last Filed: 10/12/23 17:44>
Moderate Sedation
ASA Risk Score: Class III
Chart and allergies reviewed: Yes
Consent for anesthesia obtained: Yes
Time out completed (validating right patient & procedure): Yes
Moderate Sedation Start Time(when first medication is given): 15:52
History of difficult intubation: No
Airway free of obstruction: Yes
Patient has a gag reflex: Yes
Patient is able to open mouth: Yes
Patient has no dentures: Yes
Patient has no loose teeth: Yes
Medication administered by Provider during Moderate Sedation: IV Propofol (mg)
Total dose administered: 120
Time drug administered: 15:52
Moderate Sedation Procedure End Time: 16:03
Comment: The patient was given 20 mg of propofol x 6 total with adequate sedation
<Shefali Russ PA-C - Last Filed: 10/12/23 17:19>
MDM/Problems Addressed
Differential Diagnosis Includes:
shoulder dislocation, shoulder fracture
MDM/Problems Addressed:
62 y/o M with h/o paraplegia
previous left shoulder replacement secondeary to multiple dislocations
here with dislocation of the shoudler this morning
setn in by dr. de dios for reduction
he would like us to perform sedation
dr. sharp performed the sedation
unfortunately the reduction was unscucessuful
no comoplications with sedation
pt recocered well
plan is d/c home with sling, pain meds he already has and plan for revision on tuesday in 2 days
<Shefali Russ PA-C - Last Filed: 10/12/23 17:19>
*Critical Care Note
Total Time (30-74mins, 75-104mins- exclusive of procedures): Not Applicable
ED Attending Note
<Shefali Russ PA-C - Last Filed: 10/12/23 17:19>
-
Portions of this chart may have been created with voice recognition software.� Occasional wrong word or��sound alike� substitutions may have occurred due to the inherent limitations of voice recognition software.
Discharge Plan
Departure
Patient Disposition: Home (Routine Discharge)
Date of Disposition: 10/12/23
Time of Disposition: 17:00
Patient with high blood pressure during this ER visit?: No
Condition: Fair
Covid-19: Not Applicable
Discharge Problem:
Dislocation of prosthetic joint of shoulder
Instructions: Shoulder Dislocation (DC)
Prescriptions:
No Action
cholecalciferol (vitamin D3) [Vitamin D3] 1,000 UNIT capsule
5,000 unit PO DAILY
vilazodone [Viibryd] 40 MG tablet
40 mg PO DAILY
vlmmaryasbw-A9-Ruatoueii serr [Osteo Bi-Flex (5-Loxin)] 1 EACH tablet
1 ea PO BID
fentanyl 50 MCG patch 72 hour
50 mcg transdermal Q24H
Rx Instructions:
Please note:Change every 24 hours!
multivitamin 1 EACH tablet
1 ea PO DAILY
tamsulosin 0.4 MG capsule
0.4 mg PO HS
montelukast 10 MG tablet
10 mg PO DAILY
PreserVision AREDS-2 1 EACH capsule
1 ea PO BID
fluconazole 200 mg Tablet
200 mg PO DAILY
clonazepam [Klonopin] 1 mg Tablet
1 mg PO HS
doxycycline hyclate 100 mg Tablet
100 mg PO BID
cyanocobalamin (vitamin B-12) 1,000 mcg Capsule
1,000 mcg PO DAILY
prednisone 10 mg Tablet
10 mg PO DAILY
docusate sodium [Colace] 100 mg capsule
100 mg PO BID Qty: 1 0RF
omega 6-sgr-udp-fish oil [Fish Oil] 1,000 mg (120 mg-180 mg) Capsule
1 cap PO DAILY
aspirin 325 mg tablet
325 mg PO DAILY Qty: 30 0RF
Rx Instructions:
Take daily x4 weeks for blood clot prevention; then resume Aspirin 81 mg daily.
acetaminophen [Tylenol Extra Strength] 500 mg tablet
1,000 mg PO Q6H Qty: 30 0RF
Rx Instructions:
DO NOT exceed >4000 mg daily.
sennosides [senna] 8.6 mg tablet
17.2 mg PO BID Qty: 30 0RF
prochlorperazine maleate [Compazine] 5 mg tablet
5 mg PO TID PRN (Reason: nausea and vomiting) Qty: 15 0RF
lisinopril 10 mg Tablet
10 mg PO BID Qty: 0 0RF
Rx Instructions:
HOLD IF systolic blood pressure <130 while on increased post-op narcotics
metaxalone 800 mg Tablet
800 mg PO TID Qty: 0 0RF
Rx Instructions:
Home medication.
pregabalin [Lyrica] 200 MG capsule
200 mg PO TID Qty: 0 0RF
Rx Instructions:
Home medication.
diclofenac potassium [Zipsor] 25 MG capsule
50 mg PO BID Qty: 0 0RF
Rx Instructions:
Home medication.
oxycodone 5 mg tablet
5 - 10 mg PO Q6H MDD 6 PRN (Reason: moderate-severe pain) Qty: 30 0RF
Rx Instructions:
1 tab for moderate pain, 2 if severe
Referrals:
Robby Pierce MD [Family Provider] -
Activity Restrictions/Additional Instructions:
You are likely going to need a surgery to repair your shoulder dislocation and your prosthesis. In the meantime wear the sling, use your pain control medication as prescribed previously. Ice off-and-on. Follow-up with Dr. De Dios as planned
Interventions
Interventions:
ED- Fall Risk Assessment Last Done: 10/12/23 15:30
*Nursing Disposition Last Done: 10/12/23 17:03
ED-Musculoskeletal Assessment Last Done: 10/12/23 15:15
Discharge Date and Time
Discharge Date/Time: 10/12/23 17:04
Print Language: HUNGARIAN
== END 2023-10-12 17:04 | disposition home or self-care (01) ==
LOC: EMR 13:11
PROVIDERS: EMERGENCY PHYSICIAN Student in an Organized Health Care Education/Training Program; FAMILY PHYSICIAN Internal Medicine
DX: S43.015A Anterior dislocation of left humerus, initial encounter (principal); G82.20 Paraplegia, unspecified; T84.028A Dislocation of other internal joint prosthesis, initial encounter; X50.0XXA Overexertion from strenuous movement or load, initial encounter; Y93.89 Activity, other specified; Z96.612 Presence of left artificial shoulder joint
CPT/HCPCS: 99285; 23650; 99156; 73030

== ENCOUNTER 2023-10-14 06:17 | Inpatient (IN) | payer BC, SELFPAY ==
--- NOTE | 2023-10-13 10:18 | CM ---
Patient is scheduled for a Revision L Reverse TSA on 10/14/23. Spoke with patient's , Kizzy (who is a PT), prior to surgery. Patient had a L Reverse TSA on 04/25/23 and Revision L Reverse TSA on 06/28/23. Reintroduced role of Orthopedic Navigator.
She reports that she, patient, their son and qjypqtsa-yw-ejd live in a two story home. There is a ramp to enter and a stair glide to the second floor. He currently stays on the first floor. Patient is a T6 incomplete paraplegic. Currently he
functions independently. He uses a power wheel chair. He also has a rolling walker, commode, shower seat and raised toilet seat. He has had VN services through [facility]. PCP is Dr. Robby Pierce.
Discussed orthopedic program and post surgical plans. Patient will return home when directed by surgeon. Reviewed MD follow up and transition to outpatient therapy. She is in agreement with tentative plan and states that she will be home with
patient, along with their son and [id number]-agt. They will be able to assist patient if needed.
Patient does not need to complete online education.
Plan: Orthopedic Navigator will be involved in the care of patient after surgery and will reassess discharge needs at that time.
[2023-10-14] VITALS (12 sets, daily range): BP systolic 88–121; BP diastolic 57–87; BMI 32.8
--- NOTE | 2023-10-14 06:11 | PTCARENOTE ---
Patient allergic to chlorahexadine. Patient not wiped pre-op. Will monitor patient. Patient and refused.
[2023-10-14] MEDS: TYLENOL 1000 MG PO (06:47)
[2023-10-14] MEDS: BACTROBAN NASAL 1 GRAM NASAL (06:47)
[2023-10-14] MEDS: MOBIC 15 MG PO (06:55)
[2023-10-14] MEDS: VANCOCIN 300 ML IV (07:16)
[2023-10-14] MEDS: VANCOCIN 300 MG IV (07:16)
[2023-10-14] MEDS: NORMOSOL-R 1000 IV (07:17)
[2023-10-14 07:20] LABS: Hematocrit 38.1 % (39.0-52.0); Hemoglobin 12.7 g/dL (13.0-18.0); Mean Corp Hgb Conc. 33.3 g/dL (33.0-37.0); Mean Corpuscular Hgb 31.4 pg (27.0-31.0); Mean Corpuscular Volume 94.3 fL (80.0-94.0); Mean Platelet Volume 12.2 fL (7.4-10.4); Platelet Count 152 10^3/uL (130-400); Red Blood Cell Count 4.04 10^6/uL (4.70-6.10); Red Cell Dist. Width 14.1 % (11.5-14.5); White Blood Cell Count 6.6 10^3/uL (4.8-10.8)
--- NOTE | 2023-10-14 07:24 | PTCARENOTE ---
patient refused foot pumps.
--- NOTE | 2023-10-14 07:28 | PTCARENOTE ---
Patients Mupirocin done so MRSA swab could not be done. MRSA screening done on 03/2023.
[2023-10-14 07:36] LABS: Blood Urea Nitrogen 25 mg/dl (9-20); Carbon Dioxide 34 mmol/L (22-30); Chloride 102 mmol/L (98-107); Estimated Creatinine Clearance 102 ml/min; Glucose 97 mg/dl (70-99); Potassium 4.5 mmol/L (3.5-5.1); Sodium 139 mmol/L (135-145); eGFR > 60.00
--- NOTE | 2023-10-14 10:44 | W.DS.TRANS ---
DC Summary - Extermin[employer]
-
Discharge Instructions:
Discharge Diagnosis/Procedures Revision L TSA
Diet As tolerated
Additional Activity No weight bear left arm (sling left arm x 6
weeks)
Driving Restrictions No driving
Bathing Restrictions OK to Shower
Other Services PT
Wound Care Aquacel in place until first post-op visit
Instructions:
Stand-Alone Forms:
Changes to Home Medications: No
Discharge Medications:
DC Medications w/original date entered in [employer]
cholecalciferol (vitamin D3) 25 mcg (1,000 unit) capsule (Vitamin D3) 5,000 unit PO DAILY 04/24/09
glucosamine QMg-A3-Yrwhzmaig victoria 1,500 mg-400 unit-100 mg tablet (Osteo Bi-Flex (5-Loxin)) 1 ea PO BID 11/06/13
vilazodone 40 mg tablet (Viibryd) 40 mg PO DAILY 11/06/13
fentanyl 50 mcg/hr transdermal patch 50 mcg transdermal Q24H 01/14/20
montelukast 10 mg tablet 10 mg PO DAILY 01/14/20
multivitamin 1 ea PO DAILY 01/14/20
tamsulosin 0.4 mg capsule 0.4 mg PO HS 01/14/20
vit C 250 mg-vit E 90 mg-zinc 40 mg-copper 1 tq-zhkdcv-ksomlk capsule (PreserVision AREDS-2) 1 ea PO BID 01/14/20
clonazepam 1 mg tablet (Klonopin) 1 mg PO HS 04/04/23
cyanocobalamin (vitamin B-12) 1,000 mcg capsule 1,000 mcg PO DAILY 04/04/23
doxycycline hyclate 100 mg tablet 100 mg PO BID 04/04/23
fluconazole 200 mg tablet 200 mg PO DAILY 04/04/23
prednisone 10 mg tablet 10 mg PO DAILY 04/11/23
omega 5-abu-zpp-fish oil 1,000 mg (120 mg-180 mg) capsule (Fish Oil) 1 cap PO BID 06/09/23
acetaminophen 500 mg tablet (Tylenol Extra Strength) 1,000 mg (2 x 500 mg) PO Q6H #30 tabs 06/28/23
lisinopril 10 mg tablet 10 mg PO BID #0 tabs 06/28/23
metaxalone 800 mg tablet 800 mg PO TID #0 tabs 06/28/23
pregabalin 200 mg capsule (Lyrica) 200 mg PO TID #0 caps 06/28/23
diclofenac potassium 25 mg capsule (Zipsor) 50 mg PO DAILY 10/13/23
diclofenac sodium 25 mg tablet,delayed release 25 mg PO .@ 1500 AND BEDTIME 10/13/23
docusate sodium 100 mg capsule (Colace) 100 mg PO TID stool softner 10/13/23
ixekizumab 80 mg/mL subcutaneous syringe (Taltz Syringe) 80 mg SC Q4W 10/13/23
loratadine 10 mg tablet 10 mg PO DAILY 10/13/23
magnesium oxide 500 mg PO HS 10/13/23
oxycodone 5 mg tablet 5 mg PO Q6H PRN breakthrough pain 10/13/23
oxycodone 5 mg tablet 5 mg PO TID 10/13/23
aspirin 325 mg tablet 325 mg PO DAILY #30 tabs 10/14/23
Home Medication Changes
Pending Results: No
[2023-10-14] MEDS: ANCEF 5 IV (12:06)
== END 2023-10-14 15:26 | disposition home or self-care (01) | DRG 483 ==
LOC: AMOS 06:17
PROVIDERS: ADMITTING PHYSICIAN Specialist
PROC: 0RPK0JZ Removal of Synthetic Substitute from Left Shoulder Joint, Open Approach (ICD-10-PCS; 2023-10-14)
PROC: 0RRK00Z Replacement of Left Shoulder Joint with Reverse Ball and Socket Synthetic Substitute, Open Approach (ICD-10-PCS; 2023-10-14)
DX: T84.028A Dislocation of other internal joint prosthesis, initial encounter (principal); G82.22 Paraplegia, incomplete; G47.33 Obstructive sleep apnea (adult) (pediatric); I10 Essential (primary) hypertension; E78.5 Hyperlipidemia, unspecified; L40.50 Arthropathic psoriasis, unspecified; F32.A Depression, unspecified; Z88.2 Allergy status to sulfonamides; Z88.0 Allergy status to penicillin; Z79.52 Long term (current) use of systemic steroids; Z79.899 Other long term (current) drug therapy; S24.102S Unspecified injury at T2-T6 level of thoracic spinal cord, sequela; X58.XXXS Exposure to other specified factors, sequela; Y79.2 Prosthetic and other implants, materials and accessory orthopedic devices associated with adverse incidents; Z96.612 Presence of left artificial shoulder joint
CPT/HCPCS: 73020; 80048; 85027; 86850; 86900; 86901; 87070; 87075; 87205

== ENCOUNTER → 2023-11-07 09:30 | Outpatient (REF) | payer BC, SELFPAY ==
[2023-11-07 11:24] LABS: % Basophils 0.6 % (0-2); % Eosinophils 6.4 % (0-6); % Immature Granulocytes 0.3 % (0-0.5); % Lymphocytes 25.3 % (20.5-51.1); % Monocytes 6.5 % (1.7-9.3); % Neutrophils 60.9 % (42.2-75.2); Absolute Eosinophils 0.4 10^3/uL (0-0.7); Absolute Lymphocytes 1.6 10^3/uL (1.2-3.4); Absolute Monocytes 0.4 10^3/uL (0.1-0.6); Absolute Neutrophils 3.8 10^3/uL (1.4-6.5); Hematocrit 37.9 % (39.0-52.0); Hemoglobin 12.4 g/dL (13.0-18.0); Mean Corp Hgb Conc. 32.7 g/dL (33.0-37.0); Mean Corpuscular Hgb 30.8 pg (27.0-31.0); Mean Platelet Volume 12.6 fL (7.4-10.4); Nucleated Red Blood Cells % 0 % (-); Platelet Count 203 10^3/uL (130-400); Red Blood Cell Count 4.03 10^6/uL (4.70-6.10); White Blood Cell Count 6.3 10^3/uL (4.8-10.8)
[2023-11-07 12:50] LABS: Erythrocyte Sed Rate 7 mm/hour (0-20)
[2023-11-07 13:00] LABS: C-Reactive Protein < 5.00 mg/L (0.0-10.00)
[2023-11-07 13:04] LABS: ALT (SGPT) 18 U/L (0-50); AST (SGOT) 24 U/L (17-59); Albumin 4.6 g/dl (3.5-5.0); Alkaline Phosphatase 120 U/L (38-126); Blood Urea Nitrogen 35 mg/dl (9-20); Calcium 9.8 mg/dl (8.4-10.2); Carbon Dioxide 29 mmol/L (22-30); Chloride 100 mmol/L (98-107); Glucose 96 mg/dl (70-99); Iron 114 ug/dl (49-181); Potassium 4.6 mmol/L (3.5-5.1); Sodium 137 mmol/L (135-145); Total Bilirubin 0.2 mg/dl (0.2-1.3); Total Protein 6.3 g/dl (6.3-8.2); eGFR > 60.00
[2023-11-07 13:14] LABS: Percent Saturation 35 % (20-50); Total Iron Binding Capacity 325 ug/dl (261-462)
[2023-11-07 13:16] LABS: Free T4 0.99 ng/dl (0.78-2.19)
[2023-11-07 13:21] LABS: Vitamin D, 25-OH*** 59.2 ng/mL (30-80)
[2023-11-07 13:33] LABS: TSH 1.31 uIU/ml (0.47-4.68)
[2023-11-07 13:35] LABS: Ferritin 35.7 ng/ml (17.9-464.0)
[2023-11-07 14:07] LABS: Folate > 20.0 ng/ml (2.76-20); Vitamin B12 > 1000 pg/ml (239-931)
== END ==
LOC: REG 09:30
PROVIDERS: ATTENDING PHYSICIAN Internal Medicine Rheumatology; FAMILY PHYSICIAN Internal Medicine
DX: D51.9 Vitamin B12 deficiency anemia, unspecified (principal); L40.50 Arthropathic psoriasis, unspecified; M45.8 Ankylosing spondylitis sacral and sacrococcygeal region
CPT/HCPCS: 36415; 80053; 82306; 82607; 82728; 82746; 83540; 83550; 84439; 84443; 85025; 85652; 86140; 87077; 87086; 87147

== ENCOUNTER 2024-01-23 17:04 | Outpatient (RCR) | payer BC, SELFPAY | END 2024-01-23 23:59 | disposition home or self-care (01) | LOC: RPT 17:04 | PROVIDERS: ATTENDING PHYSICIAN Specialist; FAMILY PHYSICIAN Internal Medicine | DX: M25.512 Pain in left shoulder (principal); Z73.6 Limitation of activities due to disability; R26.89 Other abnormalities of gait and mobility; M62.81 Muscle weakness (generalized); R20.0 Anesthesia of skin | CPT/HCPCS: 97110; 97112; 97116; 97140; 97163; 97530 ==

== ENCOUNTER 2024-02-20 17:04 | Outpatient (RCR) | payer BC, SELFPAY | END 2024-02-20 23:59 | disposition home or self-care (01) | LOC: RPT 17:04 | PROVIDERS: ATTENDING PHYSICIAN Specialist; FAMILY PHYSICIAN Internal Medicine | DX: Z47.1 Aftercare following joint replacement surgery (principal); M25.512 Pain in left shoulder; R26.1 Paralytic gait; Z73.6 Limitation of activities due to disability; R26.89 Other abnormalities of gait and mobility; M62.81 Muscle weakness (generalized); Z96.612 Presence of left artificial shoulder joint | CPT/HCPCS: 97110; 97112; 97140; 97530 ==

== ENCOUNTER → 2024-02-22 14:36 | Outpatient (REF) | payer BC, SELFPAY | LOC: MRI 14:36 | PROVIDERS: ATTENDING PHYSICIAN Internal Medicine Rheumatology; FAMILY PHYSICIAN Internal Medicine | DX: M50.022 Cervical disc disorder at C5-C6 level with myelopathy (principal) | CPT/HCPCS: 72156; A9575 ==

== ENCOUNTER → 2024-03-05 15:46 | Outpatient (REF) | payer BC, SELFPAY ==
[2024-03-05 17:39] LABS: % Basophils 0.4 % (0-2); % Eosinophils 0.2 % (0-6); % Immature Granulocytes 1.3 % (0-0.5); % Monocytes 4.1 % (1.7-9.3); Absolute Immature Granulocytes 0.1 10^3/uL (0-0.05); Absolute Lymphocytes 0.7 10^3/uL (1.2-3.4); Absolute Monocytes 0.2 10^3/uL (0.1-0.6); Absolute Neutrophils 4.5 10^3/uL (1.4-6.5); Hemoglobin 14.1 g/dL (13.0-18.0); Mean Corp Hgb Conc. 33.6 g/dL (33.0-37.0); Mean Corpuscular Hgb 32.6 pg (27.0-31.0); Mean Corpuscular Volume 97.2 fL (80.0-94.0); Mean Platelet Volume 11.8 fL (7.4-10.4); Nucleated Red Blood Cells % 0 % (-); Platelet Count 220 10^3/uL (130-400); Red Blood Cell Count 4.32 10^6/uL (4.70-6.10); Red Cell Dist. Width 13.2 % (11.5-14.5); White Blood Cell Count 5.4 10^3/uL (4.8-10.8)
[2024-03-05 17:51] LABS: Erythrocyte Sed Rate 3 mm/hour (0-20)
[2024-03-05 17:52] LABS: ALT (SGPT) 30 U/L (0-50); AST (SGOT) 28 U/L (17-59); Albumin 4.4 g/dl (3.5-5.0); Alkaline Phosphatase 66 U/L (38-126); Blood Urea Nitrogen 27 mg/dl (9-20); Calcium 9.8 mg/dl (8.4-10.2); Carbon Dioxide 32 mmol/L (22-30); Chloride 99 mmol/L (98-107); Glucose 121 mg/dl (70-99); HDL Cholesterol 104 mg/dl; LDL Cholesterol, Calculated 108 mg/dl; Potassium 5.2 mmol/L (3.5-5.1); Sodium 138 mmol/L (135-145); Total Bilirubin 0.3 mg/dl (0.2-1.3); Total Cholesterol 252 mg/dl (50-199); Total Protein 6.4 g/dl (6.3-8.2); Triglyceride 203 mg/dl (10-149); Very Low Density Lipoprotein 40 mg/dl (0-30); eGFR > 60.00
[2024-03-05 17:55] LABS: C-Reactive Protein < 5.00 mg/L (0.0-10.00)
[2024-03-05 18:12] LABS: Free T4 1.04 ng/dl (0.78-2.19)
[2024-03-05 18:26] LABS: TSH 0.26 uIU/ml (0.47-4.68)
[2024-03-06 08:31] LABS: Glycohemoglobin (HgbA1c) 5.8 % (4.0-5.6)
== END ==
LOC: RAD 15:46
PROVIDERS: ATTENDING PHYSICIAN Specialist; FAMILY PHYSICIAN Internal Medicine; REFERRING PHYSICIAN Internal Medicine Rheumatology
DX: M25.511 Pain in right shoulder (principal)
CPT/HCPCS: 36415; 73200; 80053; 80061; 83036; 84439; 84443; 85025; 85652; 86140

== ENCOUNTER 2024-03-05 17:07 | Outpatient (RCR) | payer BC, SELFPAY | END 2024-03-05 23:59 | disposition home or self-care (01) | LOC: RPT 17:07 | PROVIDERS: ATTENDING PHYSICIAN Specialist; FAMILY PHYSICIAN Internal Medicine | DX: Z47.1 Aftercare following joint replacement surgery (principal); M25.512 Pain in left shoulder; R26.1 Paralytic gait; Z73.6 Limitation of activities due to disability; R26.89 Other abnormalities of gait and mobility; M62.81 Muscle weakness (generalized); Z96.612 Presence of left artificial shoulder joint | CPT/HCPCS: 36415; 73200; 80053; 80061; 83036; 84439; 84443; 85025; 85652; 86140; 97110; 97112; 97530 ==

== ENCOUNTER → 2024-03-06 15:13 | Outpatient (REF) | payer BC, SELFPAY ==
[2024-03-06 16:59] LABS: Urine Albumin Negative (Neg - Trace); Urine Bilirubin Negative (Negative); Urine Character Clear (Clear); Urine Color Yellow; Urine Glucose Negative (Negative); Urine Ketone Negative (Negative); Urine Leukocyte Negative (Negative); Urine Nitrite Negative (Negative); Urine Occult Blood Negative (Negative); Urine Urobilinogen Negative (Neg - 1+)
== END ==
LOC: REG 15:13
PROVIDERS: ATTENDING PHYSICIAN Internal Medicine Rheumatology; FAMILY PHYSICIAN Internal Medicine
DX: E03.9 Hypothyroidism, unspecified (principal); G89.4 Chronic pain syndrome; L40.50 Arthropathic psoriasis, unspecified; M45.8 Ankylosing spondylitis sacral and sacrococcygeal region
CPT/HCPCS: 81003; 87086

== ENCOUNTER → 2024-03-23 13:48 | Outpatient (REF) | payer BC, SELFPAY | LOC: RCS 13:48 | PROVIDERS: ATTENDING PHYSICIAN Pain Medicine Interventional Pain Medicine; FAMILY PHYSICIAN Internal Medicine | DX: Z01.818 Encounter for other preprocedural examination (principal) | CPT/HCPCS: 93005 ==

== ENCOUNTER 2024-06-20 06:22 | Outpatient (RCR) | payer BC, SELFPAY | END 2024-06-20 23:59 | disposition home or self-care (01) | LOC: RPT 06:22 | PROVIDERS: ATTENDING PHYSICIAN Specialist; FAMILY PHYSICIAN Internal Medicine | DX: R26.1 Paralytic gait (principal); M25.512 Pain in left shoulder; Z73.6 Limitation of activities due to disability; R26.89 Other abnormalities of gait and mobility; R26.2 Difficulty in walking, not elsewhere classified; M62.81 Muscle weakness (generalized); M54.2 Cervicalgia; Z96.612 Presence of left artificial shoulder joint; M43.22 Fusion of spine, cervical region | CPT/HCPCS: 97163 ==

== ENCOUNTER 2024-07-25 15:58 | Outpatient (RCR) | payer BC, SELFPAY | END 2024-07-25 23:59 | disposition home or self-care (01) | LOC: ROT 15:58 | PROVIDERS: ATTENDING PHYSICIAN Specialist; FAMILY PHYSICIAN Internal Medicine | DX: R26.1 Paralytic gait (principal); M25.512 Pain in left shoulder; Z73.6 Limitation of activities due to disability; M54.2 Cervicalgia; R26.89 Other abnormalities of gait and mobility; R26.2 Difficulty in walking, not elsewhere classified; M62.81 Muscle weakness (generalized); Z96.612 Presence of left artificial shoulder joint; M43.22 Fusion of spine, cervical region | CPT/HCPCS: 97010; 97110; 97112; 97116; 97167; 97530; 97535 ==

== ENCOUNTER 2024-08-22 17:10 | Outpatient (RCR) | payer BC, SELFPAY | END 2024-08-22 23:59 | disposition home or self-care (01) | LOC: ROT 17:10 | PROVIDERS: ATTENDING PHYSICIAN Specialist; FAMILY PHYSICIAN Internal Medicine | DX: R26.1 Paralytic gait (principal); M25.512 Pain in left shoulder; Z73.6 Limitation of activities due to disability; R26.89 Other abnormalities of gait and mobility; M62.81 Muscle weakness (generalized); M54.2 Cervicalgia; R26.2 Difficulty in walking, not elsewhere classified; Z96.612 Presence of left artificial shoulder joint; M43.22 Fusion of spine, cervical region | CPT/HCPCS: 97010; 97110; 97112; 97116; 97530; 97535 ==

== ENCOUNTER 2024-09-24 17:00 | Outpatient (RCR) | payer BC, SELFPAY | END 2024-09-24 23:59 | disposition home or self-care (01) | LOC: ROT 17:00 | PROVIDERS: ATTENDING PHYSICIAN Specialist; FAMILY PHYSICIAN Internal Medicine | DX: R26.1 Paralytic gait (principal); M25.512 Pain in left shoulder; Z73.6 Limitation of activities due to disability; R26.89 Other abnormalities of gait and mobility; M62.81 Muscle weakness (generalized); M54.2 Cervicalgia; Z96.612 Presence of left artificial shoulder joint; R26.2 Difficulty in walking, not elsewhere classified; M43.22 Fusion of spine, cervical region | CPT/HCPCS: 97110; 97112; 97116; 97530; 97535 ==

== ENCOUNTER → 2024-10-08 16:13 | Outpatient (REF) | payer BC, SELFPAY ==
[2024-10-08 17:10] LABS: ALT (SGPT) 19 U/L (0-50); AST (SGOT) 21 U/L (17-59); Albumin 4.4 g/dl (3.5-5.0); Alkaline Phosphatase 73 U/L (38-126); Blood Urea Nitrogen 32 mg/dl (9-20); Calcium 9.9 mg/dl (8.4-10.2); Carbon Dioxide 27 mmol/L (22-30); Chloride 105 mmol/L (98-107); Glucose 118 mg/dl (70-99); Potassium 4.7 mmol/L (3.5-5.1); Sodium 138 mmol/L (135-145); Total Protein 6.3 g/dl (6.3-8.2); eGFR > 60.00
[2024-10-08 17:18] LABS: Hematocrit 37.0 % (39.0-52.0); Hemoglobin 11.8 g/dL (13.0-18.0); Mean Corp Hgb Conc. 31.9 g/dL (33.0-37.0); Mean Corpuscular Volume 90.5 fL (80.0-94.0); Nucleated Red Blood Cells % 0 % (-); Platelet Count 216 10^3/uL (130-400); Red Cell Dist. Width 15.3 % (11.5-14.5)
[2024-10-08 23:52] LABS: C-Reactive Protein < 5.00 mg/L (0.0-10.00)
[2024-10-08 23:59] LABS: Vitamin D, 25-OH*** 55.6 ng/mL (30-80)
[2024-10-09 00:48] LABS: Folate 14.3 ng/ml (2.76-20); Vitamin B12 > 1000 pg/ml (239-931)
== END ==
LOC: REG 16:13
PROVIDERS: ATTENDING PHYSICIAN Internal Medicine Rheumatology; FAMILY PHYSICIAN Internal Medicine
DX: G89.4 Chronic pain syndrome (principal); E56.9 Vitamin deficiency, unspecified; L40.50 Arthropathic psoriasis, unspecified; M45.8 Ankylosing spondylitis sacral and sacrococcygeal region
CPT/HCPCS: 36415; 80053; 82306; 82607; 82746; 85025; 85652; 86140

== ENCOUNTER → 2024-10-18 16:54 | Outpatient (REF) | payer BC, SELFPAY | LOC: RAD 16:54 | PROVIDERS: ATTENDING PHYSICIAN Orthopaedic Surgery; FAMILY PHYSICIAN Internal Medicine | DX: Z47.89 Encounter for other orthopedic aftercare (principal) | CPT/HCPCS: 72125 ==

== ENCOUNTER → 2024-11-22 16:14 | Outpatient (REF) | payer BC, SELFPAY ==
[2024-11-22 17:13] LABS: Urine Character Clear (Clear)
[2024-11-22 17:20] LABS: Urine Red Blood Cell >100 /HPF (0-2); Urine Squamous Cell 0-2 /LPF (Few); Urine White Cell 0-2 /HPF (0-5)
== END ==
LOC: REG 16:14
PROVIDERS: ATTENDING PHYSICIAN Internal Medicine Rheumatology; FAMILY PHYSICIAN Internal Medicine
DX: R82.90 Unspecified abnormal findings in urine (principal); Z79.899 Other long term (current) drug therapy
CPT/HCPCS: 81003; 81015; 87086

== ENCOUNTER → 2025-01-05 07:48 | Outpatient (REF) | payer BC, SELFPAY ==
[2025-01-05 08:51] LABS: Urine Character Slightly Cloudy (Clear)
[2025-01-05 08:59] LABS: Urine Squamous Cell 0-2 /LPF (Few)
[2025-01-05 09:00] LABS: Urine Red Blood Cell 60-70 /HPF (0-2)
== END ==
LOC: REG 07:48
PROVIDERS: ATTENDING PHYSICIAN Nurse Practitioner; FAMILY PHYSICIAN Internal Medicine
DX: R31.0 Gross hematuria (principal)
CPT/HCPCS: 81003; 81015; 87077; 87086; 87147

== ENCOUNTER 2025-02-01 21:08 | Inpatient (IN) | payer BC, SELFPAY ==
[2025-02-01] VITALS (16 sets, daily range): BP systolic 91–127; BP diastolic 57–85; BMI 30.9
[2025-02-01 15:36] LABS: Glucose - Point of Care 178 mg/dl (70-99)
[2025-02-01] MEDS: TYLENOL/FEVERALL 650 MG RECTAL (15:44)
[2025-02-01] MEDS: NSS 1000 IV ×2 (15:55)
[2025-02-01 15:57] LABS: Hematocrit 29.2 % (39.0-52.0); Hemoglobin 8.8 g/dL (13.0-18.0); Mean Corp Hgb Conc. 30.1 g/dL (33.0-37.0); Mean Corpuscular Volume 86.1 fL (80.0-94.0); Nucleated Red Blood Cells % 0 % (-); Platelet Count 205 10^3/uL (130-400); Red Cell Dist. Width 15.2 % (11.5-14.5)
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
[2025-02-01 16:14] LABS: ALT (SGPT) 20 U/L (0-50); AST (SGOT) 31 U/L (17-59); Albumin 3.7 g/dl (3.5-5.0); Alkaline Phosphatase 104 U/L (38-126); Blood Urea Nitrogen 25 mg/dl (9-20); Calcium 9.0 mg/dl (8.4-10.2); Carbon Dioxide 32 mmol/L (22-30); Chloride 106 mmol/L (98-107); Estimated Creatinine Clearance 110 ml/min; Glucose 167 mg/dl (70-99); Potassium 4.2 mmol/L (3.5-5.1); Sodium 143 mmol/L (135-145); Total Protein 6.0 g/dl (6.3-8.2); eGFR > 60.00
[2025-02-01 16:41] LABS: COVID-19 Antigen Negative (Negative)
[2025-02-01 16:55] LABS: Urine Character Clear (Clear)
[2025-02-01 18:58] LABS: Urine Red Blood Cell >100 /HPF (0-2)
[2025-02-01 18:59] LABS: Urine White Cell 0-2 /HPF (0-5)
[2025-02-01] MEDS: PERCOCET 5/325 1 TABLET PO (19:09)
[2025-02-01] MEDS: MAXIPIME 2000 MG IV (19:12)
[2025-02-01] MEDS: NSS 500 IV (19:12)
--- NOTE | 2025-02-01 19:49 | HPS.HSE ---
Family Physician
-
Family Physician: Robby Pierce
Chief Complaint
-
Altered mental status
History of Present Illness
This is a 64-year-old who has past medical history significant for psoriatic arthritis, hypertension, multiple prior back surgeries with fusion from C2 to sacrum, paraplegia, prior spinal infections on chronic doxycycline and fluconazole presenting
to the emergency department with altered mental status.
Patient was able to give me some history. He reports being in usual state of health up until this morning. This morning he woke up and felt that his abdomen was unusually queasy. He did not have any diarrhea. He denied having any vomiting. He
did feel nauseous. He was attempting to rhoades to the bathroom on his wheelchair when he ran into a glass door and broke the door. He felt guilty but otherwise was able to remember EMS coming. He did not remember his conversation with EMS. Did not
remember having any fevers at home. He denies any cough.
Family reported that he was recently treated for a UTI in December and he finished a course of cephalexin. He also had a recent URI which was treated symptomatically without any antibiotic use. He denies any recent changes in his medications.
He reports nasal congestion and rhinorrhea. Denies sore throat. Denies postnasal drip.
While he was having a discussion with him he did complain of back pain which is unusual per family. Patient has had multiple bouts of sepsis from bone and joint infections in the past without fevers. He has no known sick contacts.
He is currently alert and oriented x 3.
In the emergency department patient was found to be febrile to 103.6. Blood pressure 103/57 pulse of 121 respiration rate of 17 and he was satting 93% on room air. Chest x-ray shows no acute infiltrates. ECG with sinus tachycardia at a rate of
133. White count was 4.9 with 1.1% immature cells, hemoglobin 8.8 down from 11.8 in September platelet count was normal. Electrolytes were unremarkable. BUN and creatinine were 25 and 0.7 with glucose of 167. UA with positive blood but otherwise
unremarkable. CT of the head is nonacute. Influenza and COVID negative.
CT of the abdomen and pelvis with 5mm obstructing Right UVJ stone and mild hydronephrosis.
Medical History
Past Medical History
Past Medical History: Reports Other
Additional Past Medical History:
allergic rhinitis
HTn
BPH
paraplegics
Past Surgical History: Reports Other
Additional Past Surgical History:
multiple back surgery
Social History
Tobacco: Non-smoker
Alcohol: None
Drug: None
Personal:
Living: With Family
Family History
Family History: Not pertinent
Allergies / Home Medications
Allergies reflects when Allergies were last updated in [email or web address].
Home Medications with original date entered in [email or web address]
Allergy/Medication List:
Allergies
Allergy/AdvReac Type Severity Reaction Status Date / Time
amoxicillin (From Augmentin) Allergy Rash Verified 10/14/23 06:10
chlorhexidine Allergy severe Verified 10/14/23 06:10
raised rash
clavulanic acid (From Allergy Rash Verified 10/14/23 06:10
Augmentin)
diazepam (From Valium) Allergy AGITATION Verified 10/14/23 06:10
diflunisal (From Dolobid) Allergy palpitation Verified 10/14/23 06:10
s
ketamine Allergy AGITATION Verified 10/14/23 06:10
Sulfa (Sulfonamide Allergy Rash Verified 10/14/23 06:10
Antibiotics)
Home Medications
cholecalciferol (vitamin D3) 25 mcg (1,000 unit) capsule (Vitamin D3) 5,000 unit PO DAILY Supplement 04/24/09
vilazodone 40 mg tablet (Viibryd) 40 mg PO DAILY Mental Health/Anxiety 11/06/13
fentanyl 50 mcg/hr transdermal patch 50 mcg transdermal Q24H 01/14/20
montelukast 10 mg tablet 10 mg PO DAILY Allergies 01/14/20
tamsulosin 0.4 mg capsule 0.4 mg PO HS Urinary Issue 01/14/20
vit C 250 mg-vit E 90 mg-zinc 40 mg-copper 1 [id number] capsule (PreserVision AREDS-2) 1 cap PO BID Supplement 01/14/20
clonazepam 1 mg tablet (Klonopin) 1.5 mg PO HS Mental Health/Anxiety 04/04/23
doxycycline hyclate 100 mg tablet 100 mg PO BID 04/04/23
fluconazole 200 mg tablet 200 mg PO DAILY 04/04/23
prednisone 10 mg tablet 5 mg PO DAILY 04/11/23
omega 5-dei-hny-fish oil 1,000 mg (120 mg-180 mg) capsule (Fish Oil) 1 cap PO BID up 06/09/23
metaxalone 800 mg tablet 800 mg PO TID #0 tabs 06/28/23
docusate sodium 100 mg capsule (Colace) 100 mg PO TID stool softner 10/13/23
ixekizumab 80 mg/mL subcutaneous syringe (Taltz Syringe) 80 mg SC Q8W 10/13/23
loratadine 10 mg tablet 10 mg PO DAILY Allergies 10/13/23
magnesium oxide 500 mg PO HS Electrolyte Repletion 10/13/23
oxycodone 5 mg tablet 5 mg PO QID 10/13/23
acetaminophen 500 mg tablet (Tylenol Extra Strength) 1,000 mg PO TID 02/01/25
diclofenac potassium 25 mg capsule (Zipsor) 25 mg PO QID 02/01/25
glucosamine sulf dipot chlr,msm,chond 550 mg-C 30 mg-zack 1 mg capsule (Glucosamine Chondroitin) 1 cap PO BID Supplement 02/01/25
lisinopril 10 mg tablet 10 mg PO DAILY Blood Pressure 02/01/25
pregabalin 200 mg capsule (Lyrica) 200 mg PO TID severe pain 02/01/25
therapeutic multivitamin 1 tab PO DAILY Supplement 02/01/25
Review of Systems
-
History Source: Patient and Family
Constitutional: Reports Fatigue
EENT: Reports Runny Nose
Respiratory: Denies Cough or Trouble Breathing
Cardiac: Reports No Symptoms
Abdomen/GI: Reports Nausea
: Reports No Symptoms
Musculoskeletal: Reports Other (back pain)
Skin: Reports No Symptoms
Neurological: Reports No Symptoms
Endocrine: Reports No Symptoms
Hematologic/Lymphatic: Reports No Symptoms
Psych: Reports No Symptoms
Physical Exam
Vital Signs
Vital Signs
Temp Pulse Resp BP Pulse Ox
101.9 F H 121 17 103/57 97
02/01/25 18:32 02/01/25 19:30 02/01/25 19:30 02/01/25 19:00 02/01/25 19:30
Physical Exam
General: Well Developed, Well Nourished and No Apparent Distress
HEENT: NormoCephalic, Moist mucous membranes and Atraumatic
Respiratory: Clear
Cardiac: S1/S2 and Regular Rhythm; No Murmur or Rub
GI: Soft, Non Tender, Non Distended and Normal Bowel Sounds; No Organomegaly
Rectal: Deferred by Provider
Musculoskeletal: No Clubbing, No Cyanosis, No Edema and Other (left shoulder swelling)
Skin: No Rash
Neuro: AO x 3 and Nonfocal/grossly intact
Psych: Calm
Laboratory Results
-
02/01/25 15:46
02/01/25 15:46
Laboratory Results
Lactic Acid Cancelled 02/01/25 19:45
Total Bilirubin 0.1 mg/dl (0.2-1.3) L 02/01/25 15:46
AST 31 U/L (17-59) 02/01/25 15:46
ALT 20 U/L (0-50) 02/01/25 15:46
Alkaline Phosphatase 104 U/L (38-126) 02/01/25 15:46
Data Reviewed
-
Diagnostic Radiology: Report Reviewed by me
CT Scan: Report Reviewed by me
Medical Tests (Nuc Med, Echo, EKG etc): Image Personally Visualized and interpreted
Lab Data: Labs Reviewed by me
Old Records: Reviewed
Impression/Plan
-
IMPRESSION:
64-year-old with partial T4 paraplegia in the setting of of prior multiple back surgeries complicated by prior spinal infections on chronic dicyclomine and fluconazole, hypertension, psoriatic arthritis who presents to the emergency department with
fever and fatigue. Family reports that he was altered but patient currently alert and oriented and able to answer questions appropriately. No focal neurological deficits. He complains of back pain. Has a fever up to 103.4 on arrival. Cov/Flu
negative. U/A negative. CT a/p with 5mm obstructing R distal ureteral stone.
PLAN:
Sepsis with encephalopathy 2/2 suspect infected ureteral stone
- admit to telemetry for now
- blood cultures
- inflammatory markers
- broad spec abx with cefepime. Continue fluconazole & doxycycline for now
- IV fluids
- urology consult
Chronic back pain
- continue his lyrica oxycodone with prn dilaudid
Psoriatic arthritis - Prednisone tapered to 5mg daily
- will continue 5 daily for now
- check am cortisol
HTN
- hold lisinopril
Anemia - hgb down to 8.8 from 11.8 in September. No evidence of active bleeding or hemolysis at this time.
- trend h/h, type and screen
- transfuse if Hgb < 7
- stool occult testing
- iron panel
DVT PPX - holding ac pending stenting. restart tomorrow
Code status - Full code
[2025-02-01] MEDS: TORADOL 15 MG IV (20:17)
[2025-02-01 20:59] LABS: Reticulocyte Count 1.1 % (0.4-2.8)
--- NOTE | 2025-02-01 21:32 | CONS.URO ---
Consultation
-
Date/Time Consultation Performed: 02/01
Performing Provider: Peffer
Reason for Consultation: Septic stone
Medical History
History of Present Illness
64M with prior hx of stones and procedures with Dr. Martini
Presented to ED with altered mental status and fever up to 103
Found to have 5mm R distal ureteral stone without other source of sepsis
Treated recently for UTI and was encouraged to have a CT scan to eval for stone which patient decided against because symptoms improved
Started on broad spectrum abx
Past Medical History
Past Medical History: Other (kidney stones)
Past Surgical History: Urological
Social History
Personal:
Living: With Family
Family History
Family History: Reviewed & Not Pertinent
Allergies/Home Medications
Allergies
Allergy/AdvReac Type Severity Reaction Status Date / Time
amoxicillin (From Augmentin) Allergy Rash Verified 10/14/23 06:10
chlorhexidine Allergy severe Verified 10/14/23 06:10
raised rash
clavulanic acid (From Allergy Rash Verified 10/14/23 06:10
Augmentin)
diazepam (From Valium) Allergy AGITATION Verified 10/14/23 06:10
diflunisal (From Dolobid) Allergy palpitation Verified 10/14/23 06:10
s
ketamine Allergy AGITATION Verified 10/14/23 06:10
Sulfa (Sulfonamide Allergy Rash Verified 10/14/23 06:10
Antibiotics)
Home Medications
�Medication �Instructions �Recorded �Confirmed �Type
cholecalciferol (vitamin D3) 25 5,000 unit PO DAILY Supplement 04/24/09 02/01/25 History
mcg (1,000 unit) capsule (Vitamin
D3)
vilazodone 40 mg tablet (Viibryd) 40 mg PO DAILY Mental 11/06/13 02/01/25 History
Health/Anxiety
fentanyl 50 mcg/hr transdermal 50 mcg transdermal Q24H 01/14/20 02/01/25 History
patch
montelukast 10 mg tablet 10 mg PO DAILY Allergies 01/14/20 02/01/25 History
tamsulosin 0.4 mg capsule 0.4 mg PO HS Urinary Issue 01/14/20 02/01/25 History
vit C 250 mg-vit E 90 mg-zinc 40 1 cap PO BID Supplement 01/14/20 02/01/25 History
mg-copper 1 [id number]
capsule (PreserVision AREDS-2)
clonazepam 1 mg tablet (Klonopin) 1.5 mg PO HS Mental Health/Anxiety 04/04/23 02/01/25 History
doxycycline hyclate 100 mg tablet 100 mg PO BID 04/04/23 02/01/25 History
fluconazole 200 mg tablet 200 mg PO DAILY 04/04/23 02/01/25 History
prednisone 10 mg tablet 5 mg PO DAILY 04/11/23 02/01/25 History
omega 5-etv-rtk-fish oil 1,000 mg 1 cap PO BID up 06/09/23 02/01/25 History
(120 mg-180 mg) capsule (Fish Oil)
metaxalone 800 mg tablet 800 mg PO TID #0 tabs 06/28/23 02/01/25 Rx
docusate sodium 100 mg capsule 100 mg PO TID stool softner 10/13/23 02/01/25 History
(Colace)
ixekizumab 80 mg/mL subcutaneous 80 mg SC Q8W 10/13/23 02/01/25 History
syringe (Taltz Syringe)
loratadine 10 mg tablet 10 mg PO DAILY Allergies 10/13/23 02/01/25 History
magnesium oxide 500 mg PO HS Electrolyte Repletion 10/13/23 02/01/25 History
oxycodone 5 mg tablet 5 mg PO QID 10/13/23 02/01/25 History
acetaminophen 500 mg tablet 1,000 mg PO TID 02/01/25 02/01/25 History
(Tylenol Extra Strength)
diclofenac potassium 25 mg capsule 25 mg PO QID 02/01/25 02/01/25 History
(Zipsor)
glucosamine sulf dipot 1 cap PO BID Supplement 02/01/25 02/01/25 History
chlr,msm,chond 550 mg-C 30 mg-zack
1 mg capsule (Glucosamine
Chondroitin)
lisinopril 10 mg tablet 10 mg PO DAILY Blood Pressure 02/01/25 02/01/25 History
pregabalin 200 mg capsule (Lyrica) 200 mg PO TID severe pain 02/01/25 02/01/25 History
therapeutic multivitamin 1 tab PO DAILY Supplement 02/01/25 02/01/25 History
Physical Exam
Vital Signs
Vital Signs
Temp Pulse Resp BP Pulse Ox
98.4 F 98 20 148/73 95
02/01/25 21:29 02/01/25 21:29 02/01/25 21:29 02/01/25 21:29 02/01/25 21:29
Lab / Testing Results
Laboratory Results
02/01/25 15:46
02/01/25 15:46
Physical Exam
General: Well Developed, Well Nourished, No Apparent Distress and Other (somnolent, poorly responsive)
Respiratory: Non Labored Respirations
GI: Soft and Non Tender
Genito-urinary: No Costovertebral Tend
Neuro: Sedated
Assessment / Plan
-
64M with sepsis and obstructing R distal ureteral stone, small R renal stones
- OR for emergent R ureteral stent placement
- Broad spectrum abx pending cultures
Eventual outpatient return to OR for ureteroscopy and stone removal
--- NOTE | 2025-02-01 21:59 | PHA.VAN.IN ---
Assessment
- Assessment
Renal Function: Appears similar to baseline
Concomitant Antimicrobials: CEFEPIME
AUC Dosing Plan
- Dosing Variables
Dosing Weight (kg): 83.9
Dosing CrCl (ml/min): 120 adj 80
Vd coefficient (L/kg): 0.7
- Empiric Dosing
Initial / Loading Dose: VANCOMYCIN 2000 MG IV ~ 2230
Maintenance Regimen: VANCOMYCIN 1000 MG IV Q12H
Estimated AUC (mcg*h/mL): 498
Estimated Peak (mcg*h/mL): 29.7
Estimated Trough (mcg/ml): 13.7
Estimated Half Life (H): 9.8
- Monitoring
No levels ordered at this time: Consider levels in next few days
Pharmacokinetics Vancomycin I
- -
Patient Age: 64
Patient Sex: Male
Vancomycin Day #: 1
Indication: Bacteremia
Requesting Provider: Dr Yana Cat
Pertinent Antimicrobial Allergies:
amoxicillin w. rash
Height / Weight:
Height 6 ft 1 in
Actual Weight 83.943 kg
Pertinent Past Medical History: Paraplegia, prior spinal infections on chronic abx, w. altered mental state
- Vital Signs / Lab Results
Temp Pulse Resp BP Pulse Ox
101.9 F H 109 15 103/68 97
02/01/25 18:32 02/01/25 21:15 02/01/25 21:15 02/01/25 21:00 02/01/25 21:15
Lab Results - Hematology
02/01/25
15:46
WBC 4.9
Lab Results - Chemistry
02/01/25
15:46
BUN 25 H
Creatinine 0.7
Estimated Creat Clear 110
Albumin 3.7
02/01/25 02/01/25
15:46 19:45
Lactic Acid 1.0 Cancelled
Lab Results - Urine
02/01/25
15:46
Urine Nitrite (Reflex) Negative
Leukocyte Esterase Rfl Negative
Urine WBC (Reflex) 0-2
Ur Squamous Epith Cells 6-10
Urine Bacteria (Reflex) Few A
Microbiology Results
02/01/25 16:06 Influenza Types A & B (FILI) - Final
Nasal Swab Negative for Influenza A & B, NAAT
Negative results must be combined with clinical observations
and patient history.
Nucleic Acid Amplification test (NAAT)performed on the
[employer] platform.
--- NOTE | 2025-02-01 22:27 | W.IMMPOSTOP ---
Surgical Immed Post Op Note
-
Primary Surgeon: Peffer
Assisting Surgeon: -
Pre-op Diagnosis: sepsis, R stone
Post-op Diagnosis: same
Procedure Performed: R ureteral stent
Anesthesia Type: general
Specimen / Cultures: urine culture
Estimated Blood Loss: none
Complications: none
Operative Findings:
[2025-02-01 22:39] LABS: C-Reactive Protein 230.00 mg/L (0.0-10.00)
[2025-02-01] MEDS: VANCOCIN 540 MG IV (22:45)
[2025-02-01] MEDS: LR 1000 IV (22:46)
--- NOTE | 2025-02-01 23:46 | PTCARENOTE ---
23:20 pt rec'vd from PACU, aaox3, able but unwilling to verbalize needs or answer admission questions. at the bed side answered admission questions. VS wnl. pt did yell out he has no pain and hurried staff out of room. pt and oriented to
unit.
[2025-02-02] VITALS (8 sets, daily range): BP systolic 93–123; BP diastolic 57–77
[2025-02-02] MEDS: COLACE 100 MG PO ×4 (00:03→21:52)
[2025-02-02] MEDS: KLONOPIN 1.5 MG PO ×2 (00:03→21:51)
[2025-02-02] MEDS: LYRICA 200 MG PO ×4 (00:04→21:53)
[2025-02-02] MEDS: METHOCARBAMOL 750 MG PO ×5 (00:05→21:52)
[2025-02-02] MEDS: FLOMAX 0.4 MG PO ×2 (00:05→21:53)
[2025-02-02] MEDS: ROXICODONE 5 MG PO ×5 (00:05→21:52)
[2025-02-02] MEDS: DURAGESIC 50 MCG/HR PATCH 1 PATCH TRANSDERM ×2 (01:01→22:28)
[2025-02-02] MEDS: REMOVE DURAGESIC PATCH REMOVE (01:01)
[2025-02-02] MEDS: MAXIPIME 2000 MG IV ×3 (02:23→17:14)
[2025-02-02] MEDS: STERILE WATER FOR INJECTION 10 ML IV ×4 (02:24→17:15)
[2025-02-02] MEDS: TYLENOL 650 MG PO (04:33)
[2025-02-02 06:24] LABS: Hematocrit 26.7 % (39.0-52.0); Hemoglobin 8.1 g/dL (13.0-18.0); Mean Corp Hgb Conc. 30.3 g/dL (33.0-37.0); Mean Corpuscular Volume 85.3 fL (80.0-94.0); Platelet Count 208 10^3/uL (130-400); Red Cell Dist. Width 15.2 % (11.5-14.5)
[2025-02-02 06:49] LABS: Blood Urea Nitrogen 20 mg/dl (9-20); Calcium 8.5 mg/dl (8.4-10.2); Carbon Dioxide 28 mmol/L (22-30); Chloride 107 mmol/L (98-107); Estimated Creatinine Clearance > 125 ml/min; Glucose 134 mg/dl (70-99); Iron 21 ug/dl (49-181); Potassium 4.6 mmol/L (3.5-5.1); Sodium 141 mmol/L (135-145); eGFR > 60.00
[2025-02-02 06:58] LABS: Total Iron Binding Capacity 282 ug/dl (261-462)
[2025-02-02 07:20] LABS: Cortisol, Random 5.5 ug/dl
[2025-02-02] MEDS: VIBRAMYCIN 100 MG PO ×2 (08:05→19:41)
[2025-02-02] MEDS: CLARITIN 10 MG PO (08:06)
[2025-02-02] MEDS: SINGULAIR 10 MG PO (08:06)
[2025-02-02] MEDS: DELTASONE 5 MG PO (08:06)
[2025-02-02] MEDS: DIFLUCAN 200 MG PO (08:09)
--- NOTE | 2025-02-02 08:22 | PHA.VAN.FU ---
Vancomycin Assessment / Plan
- Assessment
Renal Function: SCR Decreasing
WBC's are: Stable
In the past 24 hrs, patient has been: Febrile (Tmax = 103.6)
Concomitant Antimicrobials: Cefepime, Doxycycline, Fluconazole
- Dosing Plan
Continue: Vanc 1000mg IV Q12H
- Monitoring Plan
No level(s) ordered at this time: Consider levels after 02/03 1800 dose.
- Follow Up
Pharmacy will continue to follow.
Vancomycin Follow UP
- -
Patient Age: 64
Patient Sex: Male
Vancomycin Day #: 2
Indication: Bacteremia
Requesting Provider: Dr Yana Cat
Pertinent Antimicrobial Allergies:
amoxicillin w. rash
Height / Weight:
Height 5 ft 6 in
Actual Weight 86.9 kg
Pertinent Past Medical History: Paraplegia, prior spinal infections on chronic abx, w. altered mental state
- Vital Signs / Lab Results
Temp Pulse Resp BP Pulse Ox
98.5 F 87 16 104/69 95
02/02/25 07:20 02/02/25 07:20 02/02/25 07:20 02/02/25 07:20 02/02/25 07:20
Lab Results - Hematology
02/01/25 02/02/25
15:46 06:01
WBC 4.9 4.3 L
Lab Results - Chemistry
02/01/25 02/02/25
15:46 06:01
BUN 25 H 20
Creatinine 0.7 0.5 L
Estimated Creat Clear 110 > 125
Albumin 3.7
02/01/25 02/01/25
15:46 19:45
Lactic Acid 1.0 Cancelled
Lab Results - Urine
02/01/25
15:46
Urine Nitrite (Reflex) Negative
Leukocyte Esterase Rfl Negative
Ur Squamous Epith Cells 6-10
Microbiology Results
02/01/25 16:06 Influenza Types A & B (FILI) - Final
Nasal Swab Negative for Influenza A & B, NAAT
Negative results must be combined with clinical observations
and patient history.
Nucleic Acid Amplification test (NAAT)performed on the
[employer] platform.
--- NOTE | 2025-02-02 10:33 | W.PN.URO.CBU ---
Today's Communication / Plan
-
Continue antibiotics
Follow up with Dr. Martini to address kidney stones
Assessment / Plan
-
64M with sepsis likely due to obstructing R distal ureteral stone
s/p recent outpatient abx treatment for suspected UTI, culture showing only group B strep
s/p R ureteral stent 02/02/25
- Recommend continuing broad spectrum IV abx until urine cultures result
- Patients states that he will not stay another night in the hospital since he has spent too much time in hospitals recently and because he felt some staff were disagreeable overnight. We discussed the life threatening nature of his infection, and
that he may have bacteremia that is not fully treated or may not be adequately covered by an empiric PO regimen, with the consequences being possible worsening infection with associated morbodity or . Patient and his at bedside accept some
increased risk in this regard
- If going home AMA, would recommend PO abx course pending culture results. Suggest cefdinir for coverage of GBS on recent urine culture
- Outpatient follow up with Dr. Martini for ureteroscopy and stone removal
Diagnosis
-
Date of Service: February 02, 2025
-
Patient Diagnosis:
Sepsis
Obstructing ureteral stone
Post Op Day: 1 s/p R ureteral stent
Subjective
-
Frustrated with care overnight but otherwise doign well
No voiding issues
Stent not bothersome
Objective
-
Vital Signs
Temp Pulse Resp BP Pulse Ox
98.5 F 87 16 104/69 95
02/02/25 07:20 02/02/25 07:20 02/02/25 07:20 02/02/25 07:20 02/02/25 07:20
Intake and Output
02/01/25 02/02/25 02/03/25
06:59 06:59 06:59
Intake Total 1160 / 1160
Output Total 745 / 745 125 / 125
Balance 415 / 415 -125 / -125
Intake:
Oral fluids 360 / 360
IV fluids (Total) 800 / 800
Normosol 100 / 100
Output:
Urine, Voided 745 / 745 125 / 125
Other:
How many times incontinent 2
SATURATED amount urine
Laboratory Results
02/02/25 06:01
02/02/25 06:01
Physical Exam
-
General - well developed, well nourished, no acute distress
Chest - clear
Abdomen - soft, non-tender
Skin - warm & dry with no rash
Neuro - AOx3, no motor deficits
Extremities - no clubbing, no cyanosis, no edema
[2025-02-02] MEDS: VANCOCIN 200 IV ×2 (12:43→23:26)
--- NOTE | 2025-02-02 13:10 | CM ---
Initial assessment completed with pts at bedside.
self reports as PT and gives minimal information regarding prior level and home set up.
and pt are anxious to discharge to home and are insistent that it will be today regardless of recommendations.
Pt and life in a 2 story home that has a ramp to enter and a stairglide to the second floor.
reports that pt is generally independent but that she is there to assist where needed. She says they are 'all set up' with equipment and home layout.
Pt has had [facility] in the past but does not feel he will need it at discharge from this stay.
Pt has never been to SNF. Has been to [facility]
PCP; Robby Pierce
Pharm; [facility] for immediate, but typically [facility]
PLAN; Home with no needs/possible AMA
--- NOTE | 2025-02-02 14:16 | W.PN.UPDATE ---
Update Note
Progress Note Update
This is a placeholder addendum for progress note to be written by the medical chief technician.
General: No Apparent Distress, Comfortable and Conversant
HEENT: NormoCephalic, Moist mucous membranes, Atraumatic
Respiratory: Clear and Non Labored Respirations
Cardiac: S1/S2 and Regular Rhythm; No Rub or Gallop
GI: Soft, Non Tender, Non Distended and Normal Bowel Sounds
Musculoskeletal: No Edema, no deformity
Skin: Warm and dry
: NO Block
Neuro: Awake, Alert, paraplegic
Psych: Anxious
Mr. Faustin is a 64-year-old male with medical history of T4 paraplegia, psoriatic arthritis, recurrent spinal infections (on chronic doxycycline and fluconazole), and hypertension who presented with encephalopathy and fever. He was found to have a
5 mm obstructing right ureteral stone. He was started on broad-spectrum antibiotics and admitted for further evaluation and management.
Sepsis secondary to UTI:
- With associated metabolic encephalopathy
- Found to have an obstructing 5 mm right ureteral stone
- Brought to the OR with urology for right ureteral stent placement, tolerated procedure well
- Continue broad-spectrum antibiotics, follow-up cultures
- Patient had initially considered leaving AGAINST MEDICAL ADVICE however is currently willing to stay inpatient
DVT prophylaxis: SCDs
CODE STATUS: Full code
--- NOTE | 2025-02-02 14:55 | W.PN.HOSP.TC ---
Today's Communication/Plan
-
Continue antibiotics
Awaiting cultures
Assessment / Plan
Assessment / Plan
64-year-old with partial T4 paraplegia in the setting of of prior multiple back surgeries complicated by prior spinal infections on chronic dicyclomine and fluconazole, hypertension, psoriatic arthritis who presents to the emergency department with
fever and fatigue. Family reports that he was altered but patient currently alert and oriented and able to answer questions appropriately. No focal neurological deficits. He complains of back pain. Has a fever up to 103.4 on arrival. Cov/Flu
negative. U/A negative. CT a/p with 5mm obstructing R distal ureteral stone.
#Sepsis with encephalopathy 2/2 suspect infected ureteral stone, resolving
#Pyelonephritis
S/p stenting by urology
S/p IV fluid resuscitation
Previous urine cultures with strep agalactiae
- blood cultures no growth to date
- broad spec abx with cefepime and vancomycin
- continue fluconazole & doxycycline
- DC IV fluids
- urology consult, appreciate recs
#Chronic back pain
#T4 paraplegia
#History of spinal surgery
- continue oxycodone
- Continue lyrica oxycodone
- prn dilaudid
#Psoriatic arthritis
On prednisone 10 mg
- Prednisone tapered to 5mg daily
- will continue 5 daily for now
- am cortisol 5.5
#Essential HTN
SBP in the 100's today consider restarting once SBP improves
- hold lisinopril
#Normocytic anemia, stable
hgb down to 8.8 from 11.8 in September. No evidence of active bleeding or hemolysis at this time.
MCV 85
- trend h/h, type and screen
- transfuse if Hgb < 7
- iron 21L TIBC 282nl saturation 7%L
- Likely iron deficiency anemia, supplementation after hospitalization
DVT PPX -SCDs
Code status - Full code
Anticipated Discharge: 24 - 48 hours
Subjective/Interval History
-
Patient was seen at bedside with present on the phone. Patient had no chest pain no fevers no chills no nausea no vomiting. Patient wanted to know when cultures would be back and asking to be discharged today. Told patient that we would have
to wait a couple days for cultures but that he is on empiric antibiotic regimen currently. Patient insisted on being discharged, told him that would be an advisable and patient threatened to leave AMA. Patient was discharged but after conversation
with his patient decided to stay inpatient and was undischarged. Date of Service: February 02, 2025
Objective Data
-
Labs:
Laboratory Results
02/02/25
06:01
WBC 4.3 L
Hgb 8.1 L
Hct 26.7 L
Plt Count 208
Sodium 141
Potassium 4.6
Chloride 107
Carbon Dioxide 28
BUN 20
Creatinine 0.5 L
Glucose 134 H
Calcium 8.5
Vital Signs:
Vital Signs
Temp Pulse Resp BP Pulse Ox
98 F 87 16 101/69 98
02/02/25 11:25 02/02/25 11:25 02/02/25 11:25 02/02/25 11:25 02/02/25 11:25
I&O
02/01/25 02/02/25 02/03/25
06:59 06:59 06:59
Intake Total 1160 / 1160
Output Total 745 / 745 125 / 125
Balance 415 / 415 -125 / -125
Review of Systems
-
History Source: Patient and Family
Constitutional: Reports No Symptoms; Denies Fever or Chills
EENT: Denies Sore Throat or Runny Nose
Respiratory: Denies Cough or Trouble Breathing
Cardiac: Denies Chest Pain or Palpitations
Abdomen/GI: Denies Abdominal Pain, Nausea, Vomiting, Diarrhea or Constipated
Genitourinary: Reports Dysuria
Skin: Denies Itching or Rash
Neuro: Denies Headache or Weakness
Physical Exam
-
General: Well Developed, Well Nourished, No Apparent Distress, Comfortable and Obese
HEENT: Normocephalic and Atraumatic
Respiratory: Clear to Auscultation and Non Labored Respirations; Negative Wheezes or Crackles
Cardiac: Regular Rhythm and S1/S2; Negative Murmur
GI: Soft, Nontender, Nondistended and Normal Bowel Sounds
Musculoskeletal: No Clubbing and No Edema
Skin: Warm and Dry
Neuro: Awake and Alert
[2025-02-02] MEDS: COLACE PO (16:22)
[2025-02-02] MEDS: LIDOCAINE 4% PATCH 2 PATCH TOPICAL (16:51)
[2025-02-02] MEDS: REMOVE DURAGESIC PATCH 1 PATCH REMOVE (22:32)
[2025-02-03] MEDS: STERILE WATER FOR INJECTION 10 ML IV ×4 (01:09→09:55)
[2025-02-03] MEDS: MAXIPIME 2000 MG IV ×2 (01:11→09:55)
[2025-02-03 03:00] VITALS: BP 139/92
[2025-02-03] MEDS: MORPHINE SULFATE 2 MG IV (03:44)
[2025-02-03] MEDS: VANCOCIN 200 IV ×2 (05:29→17:44)
[2025-02-03 06:31] LABS: Hematocrit 25.4 % (39.0-52.0); Hemoglobin 7.6 g/dL (13.0-18.0); Mean Corp Hgb Conc. 29.9 g/dL (33.0-37.0); Mean Corpuscular Volume 88.8 fL (80.0-94.0); Platelet Count 205 10^3/uL (130-400); Red Cell Dist. Width 15.0 % (11.5-14.5)
[2025-02-03 07:21] LABS: Blood Urea Nitrogen 17 mg/dl (9-20); Calcium 9.0 mg/dl (8.4-10.2); Carbon Dioxide 29 mmol/L (22-30); Chloride 104 mmol/L (98-107); Estimated Creatinine Clearance > 125 ml/min; Glucose 102 mg/dl (70-99); Potassium 3.5 mmol/L (3.5-5.1); Sodium 136 mmol/L (135-145); eGFR > 60.00
[2025-02-03 07:25] VITALS: BP 136/96
[2025-02-03] MEDS: DIFLUCAN 200 MG PO (07:38)
[2025-02-03] MEDS: METHOCARBAMOL 750 MG PO ×4 (07:38→22:09)
[2025-02-03] MEDS: ROXICODONE 5 MG PO ×4 (07:38→22:10)
[2025-02-03] MEDS: LYRICA 200 MG PO ×3 (07:38→22:09)
[2025-02-03] MEDS: DELTASONE 5 MG PO (07:38)
[2025-02-03] MEDS: CLARITIN 10 MG PO (07:38)
[2025-02-03] MEDS: SINGULAIR 10 MG PO (07:38)
[2025-02-03] MEDS: VIBRAMYCIN 100 MG PO (07:38)
[2025-02-03] MEDS: COLACE 100 MG PO ×3 (07:39→22:08)
[2025-02-03] MEDS: LIDOCAINE 4% PATCH 2 PATCH TOPICAL (07:45)
--- NOTE | 2025-02-03 08:06 | PHA.VAN.FU ---
Vancomycin Assessment / Plan
- Assessment
Renal Function: Stable
WBC's are: Trending Up
In the past 24 hrs, patient has been: Febrile
Concomitant Antimicrobials: Cefepime, Doxycyline, Fluconazole
- Dosing Plan
Continue: Vanc 1000mg IV q12H
- Monitoring Plan
Peak Level: 02/03 at 2100
Trough Level: 02/04 at 0530
- Follow Up
Pharmacy will continue to follow.
Vancomycin Follow UP
- -
Patient Age: 64
Patient Sex: Male
Vancomycin Day #: 3
Indication: Bacteremia
Requesting Provider: Dr Yana Cat
Pertinent Antimicrobial Allergies:
amoxicillin w. rash
Height / Weight:
Height 5 ft 6 in
Actual Weight 86.9 kg
Pertinent Past Medical History: Paraplegia, prior spinal infections on chronic abx, w. altered mental state
- Vital Signs / Lab Results
Temp Pulse Resp BP Pulse Ox
98.1 F 77 16 136/96 98
02/03/25 07:25 02/03/25 07:25 02/03/25 07:25 02/03/25 07:25 02/03/25 07:25
Lab Results - Hematology
02/01/25 02/02/25 02/03/25
15:46 06:01 06:06
WBC 4.9 4.3 L 6.3
Lab Results - Chemistry
02/01/25 02/02/25 02/03/25
15:46 06:01 06:06
BUN 25 H 20 17
Creatinine 0.7 0.5 L 0.5 L
Estimated Creat Clear 110 > 125 > 125
Albumin 3.7
02/01/25 02/01/25
15:46 19:45
Lactic Acid 1.0 Cancelled
Microbiology Results
02/01/25 16:06 Blood Culture - Preliminary
Blood/Venous Positive culture in progress
Gram Stain - Preliminary
02/01/25 15:46 Blood Culture - Preliminary
Blood/Venous No Growth in 24 hours- Final report to follow
02/01/25 16:06 Influenza Types A & B (FILI) - Final
Nasal Swab Negative for Influenza A & B, NAAT
Negative results must be combined with clinical observations
and patient history.
Nucleic Acid Amplification test (NAAT)performed on the
[employer] platform.
--- NOTE | 2025-02-03 09:32 | W.PN.HOSP.TC ---
Today's Communication/Plan
-
Repeat blood cultures
Type and cross
Continue broad-spectrum antibiotics
Assessment / Plan
Assessment / Plan
64-year-old with partial T4 paraplegia in the setting of of prior multiple back surgeries complicated by prior spinal infections on chronic dicyclomine and fluconazole, hypertension, psoriatic arthritis who presents to the emergency department with
fever and fatigue. Family reports that he was altered but patient currently alert and oriented and able to answer questions appropriately. No focal neurological deficits. He complains of back pain. Has a fever up to 103.4 on arrival. Cov/Flu
negative. U/A negative. CT a/p with 5mm obstructing R distal ureteral stone. Urology was consulted who took patient to the OR for stenting who found purulent urine. Patient was started on broad-spectrum IV antibiotics and aggressive IV fluid
resuscitation. 1 blood culture returned with Staph epidermidis, other blood culture negative, repeating blood cultures.
#Sepsis with encephalopathy 2/2 suspect infected ureteral stone, resolving
#Pyelonephritis
S/p stenting by urology
S/p IV fluid resuscitation
Previous urine cultures with strep agalactiae
blood cultures x 1 Staph epidermidis
Blood culture x 1 no growth to date
Possibly contaminant, cannot exclude infected hardware
Repeat blood cultures x 2
-Urine culture pending
- broad spec abx with cefepime and vancomycin
- continue fluconazole & doxycycline
- urology consult, appreciate recs
#Chronic back pain
#T4 paraplegia
#History of spinal surgery
- continue oxycodone
- Continue lyrica
- Lidocaine patches x 2
- prn dilaudid
#Psoriatic arthritis
On prednisone 10 mg
- Prednisone tapered to 5mg daily
- will continue 5 daily for now
- am cortisol 5.5
#Essential HTN
SBP in the 100's today consider restarting once SBP improves
- hold lisinopril
#Normocytic anemia, stable
hgb down to 8.8 from 11.8 in September. No evidence of active bleeding or hemolysis at this time.
MCV 85
- trend h/h, type and screen
-Hemoglobin dropped to 7.6, patient passing bloody urine
-UA
-Type and cross
-Repeat H&H
- transfuse if Hgb < 7
- iron 21L TIBC 282nl saturation 7%L
- Likely iron deficiency anemia, supplementation after hospitalization
DVT PPX -SCDs
Code status - Full code
Anticipated Discharge: Within 24 hours
Subjective/Interval History
-
Saw patient at bedside with family present. He reports feeling well with no shortness of breath no chest pain no nausea no vomiting no abdominal pain. He did report passing blood clots yesterday and having dark-colored urine, urine has been
clearing up since yesterday afternoon and he does not endorse any burning with urination. Date of Service: February 03, 2025
Objective Data
-
Labs:
Laboratory Results
02/03/25 02/03/25
06:06 11:30
WBC 6.3
Hgb 7.6 L Pending
Hct 25.4 L Pending
Plt Count 205
Sodium 136
Potassium 3.5
Chloride 104
Carbon Dioxide 29
BUN 17
Creatinine 0.5 L
Glucose 102 H
Calcium 9.0
Vital Signs:
Vital Signs
Temp Pulse Resp BP Pulse Ox
98.1 F 77 16 136/96 98
02/03/25 07:25 02/03/25 07:25 02/03/25 07:25 02/03/25 07:25 02/03/25 09:24
I&O
02/02/25 02/03/25 02/04/25
06:59 06:59 06:59
Intake Total 1160 / 1160 1170 / 1170
Output Total 745 / 745 585 / 585 300 / 300
Balance 415 / 415 585 / 585 -300 / -300
Review of Systems
-
History Source: Patient and Family
Constitutional: Denies Fever, Night Sweats or Chills
EENT: Denies Runny Nose
Respiratory: Denies Cough, Trouble Breathing or Wheezing
Cardiac: Denies Chest Pain or Palpitations
Abdomen/GI: Denies Abdominal Pain, Nausea, Vomiting, Diarrhea or Constipated
Genitourinary: Reports Bleeding and Dark Urine; Denies Dysuria
Skin: Denies Itching or Rash
Neuro: Denies Dizzy or Headache
Physical Exam
-
General: Well Developed, Well Nourished, No Apparent Distress, Comfortable and Obese; Negative Fever
HEENT: Normocephalic and Atraumatic
Respiratory: Clear to Auscultation and Non Labored Respirations; Negative Wheezes or Crackles
Cardiac: Regular Rhythm and S1/S2; Negative Murmur
GI: Soft, Nontender, Nondistended and Normal Bowel Sounds
Musculoskeletal: No Clubbing and No Edema
Skin: Warm and Dry
Neuro: Awake, Alert and Oriented
--- NOTE | 2025-02-03 09:48 | W.PN.URO.CBU ---
Today's Communication / Plan
-
Continue antibiotics
Outpatient follow up for stone removal
Assessment / Plan
-
64M with sepsis likely due to obstructing R distal ureteral stone
s/p recent outpatient abx treatment for suspected UTI, culture showing only group B strep
s/p R ureteral stent 02/02/25
- Recommend continuing broad spectrum IV abx until urine cultures result
- Patient strongly prefers discharge today. Discussed the benefits of staying inpatient until cultures finalize. He is accepting of the increased risks of recurrent infection or readmission if discharged on inappropriate outpatient course. Given abx
use prior to his admission there is certainly a chance the cultures will not give a definitive result anyway.
- If going home today, would recommend PO abx course pending culture results. Suggest cefdinir for coverage of GBS on recent urine culture
- Hematuria expected intermittently with ureteral stent in place
- Some voiding with clots yesterday now resolved, urine tea colored
- Minor HGB change possibly contributed to by hematuria vs dilution from resuscitative fluids. No concern for active bleeding
- Outpatient follow up with Dr. Martini for ureteroscopy and stone removal
Diagnosis
-
Date of Service: February 03, 2025
-
Patient Diagnosis:
Sepsis
Obstructing ureteral stone
Hematuria
Post Op Day: 2 s/p R ureteral stent
Subjective
-
Decided to stay last night
Some hematuria with clots yesterday
No clots since yesterday and urine color less red
voiding without difficulty
Objective
-
Vital Signs
Temp Pulse Resp BP Pulse Ox
98.1 F 77 16 136/96 98
02/03/25 07:25 02/03/25 07:25 02/03/25 07:25 02/03/25 07:25 02/03/25 09:24
Intake and Output
02/02/25 02/03/25 02/04/25
06:59 06:59 06:59
Intake Total 1160 / 1160 1170 / 1170
Output Total 745 / 745 585 / 585 300 / 300
Balance 415 / 415 585 / 585 -300 / -300
Intake:
Oral fluids 360 / 360 720 / 720
IV fluids (Total) 800 / 800 50 / 50
Normosol 100 / 100
IV piggybacks 400 / 400
Output:
Urine, Voided 745 / 745 585 / 585 300 / 300
Other:
How many times incontinent 2 2
SATURATED amount urine
Number of approximated MODERATE 1
amounts of urine
Laboratory Results
02/03/25 06:06
Physical Exam
-
General - well developed, well nourished, no acute distress
Chest - unlabored
[2025-02-03 10:35] LABS: Urine Character Cloudy (Clear)
[2025-02-03 10:40] LABS: Urine Red Blood Cell >100 /HPF (0-2); Urine Squamous Cell 0-2 /LPF (Few)
[2025-02-03 11:59] LABS: Hematocrit 29.6 % (39.0-52.0); Hemoglobin 8.7 g/dL (13.0-18.0)
--- NOTE | 2025-02-03 13:20 | CON.ID ---
Consultation
-
Date/Time Consultation Requested: February 03, 2025 1244
Date/Time Consultation Performed: February 03, 2025 1320
Requesting Provider: Dr. Tara Ribera
Performing Provider: Dr. Luba Daugherty
Reason for Consultation: Bacteremia
Chief Complaint / Past History
Chief Complaint
Back pain
History of Present Illness
History obtained from the patient, at bedside, and review of outside medical records. 64-year-old male with history of psoriatic arthritis on biologic and low-dose prednisone, nephrolithiasis, very complicated spine infection history on
chronic doxycycline and fluconazole, T4 cord compression with incomplete paraplegia who presented to the ER February 01 with acute thoracic pain, decreased mental status and fever. Patient's came home and found the patient minimally responsive.
EMS brought him to the closest hospital. In the ER temperature 103.6. CAT scan of the abdomen pelvis showed obstructing right renal calculus. He was taken to the OR right away status post ureter stent placement, intraoperative urine culture
negative. Patient placed on vancomycin and cefepime. Admission blood cultures x 2 growing Staphylococcus epidermidis. Patient continues to have lower thorax pain. Acute pain started on Tuesday, January 30. Thorax pain persists despite ureter
stent placement. Fever resolved on abx.
Regarding the challenging spine infection history, he initially underwent L4-5 foraminotomy and microdiscectomy in January 2013. He then started developing low back pain October 2013. MRI November 2013 showed epidural abscess. He presented to
[facility] status post I&D, instrumentation, 6 week of cefazolin presumably for MSSA, then chronic doxycycline suppression. He follows with ID, Dr. Moran at [facility]. He subsequently underwent multiple thoracic, lumbar
decompression laminectomy, isntrumentation for arthrtis. Doxycycline evenutally discontinued due to stability. In 10/2020 he had hardware failure s/p revisionT6-L1, etc. In 12/26/20 T5-T6 laminectomy, remival of HW, multiple OR cx's + Staph captis.
He then suffered T4 cord compression from abscess s/p surgery OR cx Staph epi, Shalonda albicans. Agter prolonged course of IV abx, he was placed on suppressive doxycyline and fluconazole. This year, he had several cervical spine surgeries.
Past History
Additional Past Medical History:
HTN
Incomplete paraplegia, T4 cord compression (12/2020)
Chronic pain syndrome
Nephrolithiasis
GABRIELA
Depression
Psoriatic arthritis on Taltz, low dose prednisone
Provoked BLE DVT s/p IVC filter, subsequent retrieval
Spine surgeries x 20 C spine to lumbar with extensive hardware and multiple infections:
01/2023 L4-5 foraminotomy/microdiscectomy c/b epidural abscess 11/2013 s/p I+D, instrumentation. MSSA on prolonged doxycycline
10/2020 revision posterior thoracolumbar instrumentation fusion at T6-L1 and decompression Lami T10-T11 with removal of instrumentation. OR culture corynebacterium aftermentans from broth deemed to be a contaminant.
12/26/20 T5-T6 decompression laminectomy, removal of hardware, multiple OR cultures Staphylococcus capitis, methicillin sensitive -> cefazolin plus rifampin
12/31/20 revision instrumented fusion of T5-T11, T5-6 thoracic fusion, placement of instrumentation T5-12
01/08/21 Enterobacter cloacae bacteremia
01/26/21 spinal abscess/phlegmon status post T4, T7 laminectomy, posterior thoracic revision Lami T5 and T6. OR culture positive for Staphylococcus epidermidis (/ cx) and Shalonda albicans status post 6 weeks vancomycin, levofloxacin,
fluconazole then suppressive doxycycline 100 mg twice daily and fluconazole 200 mg daily.
Additional Past Surgical History:
Spine surgeries x 20 C- spine to lumbar with extensive hardware
Left shoulder prosthetic dislocation s/p revision reverse total shoulder arthroplasty, both humeral and glenoid components. 09/2023
Submandibular abscess drainage
Allergy History:
amoxicillin (From Augmentin) Allergy (Verified 10/14/23 06:10)
Rash
chlorhexidine Allergy (Verified 10/14/23 06:10)
severe raised rash
clavulanic acid (From Augmentin) Allergy (Verified 10/14/23 06:10)
Rash
diazepam (From Valium) Allergy (Verified 10/14/23 06:10)
AGITATION
diflunisal (From Dolobid) Allergy (Verified 10/14/23 06:10)
palpitations
ketamine Allergy (Verified 10/14/23 06:10)
AGITATION
Sulfa (Sulfonamide Antibiotics) Allergy (Verified 10/14/23 06:10)
Rash
Medications Reviewed: Yes
Current Antibiotics:
Cefepime 2 g IV Q 8 day 3
IV vancomycin day 3
Fluconazole 200 mg p.o. daily
Doxycycline 100 mg p.o. twice daily
Social History
Tobacco: Former Smoker
Alcohol: Occasional
Drug: None
Personal:
Review of Systems
Review of Systems
General: Fever, Chills and Change in Appetite
HEENT: Negative Sinus Problems or Headache
Cardiovascular: Negative Chest Pain or Dyspnea
Respiratory: Negative Dyspnea
Gasteroenterology: Negative Nausea, Vomiting or Diarrhea
Genital / Urological: Negative Dysuria or Flank Pain
Endocrine: Weakness
All systems: All other systems were reviewed and were negative
Vital Signs
Temp Pulse Resp BP Pulse Ox
98.1 F 77 16 136/96 98
02/03/25 07:25 02/03/25 07:25 02/03/25 07:25 02/03/25 07:25 02/03/25 09:24
Physical Exam
Physical Exam
Constitutional: No Acute Distress
Eyes: No Conjunctival Hemorrhage and Sclera Anicteric
Cardiovascular: Regular Rate and S1/S2
Pulmonary: Clear
Gastrointestinal: Soft and Non Tender
Genito-Urinary: Negative CVA Tenderness
Extremities: Negative Edema
Musculoskeletal: Spinal Tenderness (lower thorax)
Skin: Negative Jaundice
Neurological: AO x 3; Negative Meningeal Signs
Lab / Diagnostic Study Results
02/03/25 11:19
02/03/25 06:06
Abs Immat Gran (auto) 0.1 10^3/uL (0-0.05) H 02/01/25 15:46
Absolute Neuts (auto) 3.9 10^3/uL (1.4-6.5) 02/01/25 15:46
Absolute Lymphs (auto) 0.5 10^3/uL (1.2-3.4) L 02/01/25 15:46
Absolute Monos (auto) 0.4 10^3/uL (0.1-0.6) 02/01/25 15:46
Absolute Basos (auto) 0.0 10^3/uL (0-0.2) 02/01/25 15:46
Immature Gran % 1.0 % (0-0.5) H 02/01/25 15:46
Neutrophils % 80.0 % (42.2-75.2) H 02/01/25 15:46
Lymphocytes % 9.2 % (20.5-51.1) L 02/01/25 15:46
Monocytes % 8.0 % (1.7-9.3) 02/01/25 15:46
Eosinophils % 1.2 % (0-6) 02/01/25 15:46
Basophils % 0.6 % (0-2) 02/01/25 15:46
ESR 87 mm/hour (0-20) H 02/01/25 15:46
Lactic Acid Cancelled 02/01/25 19:45
C-Reactive Protein 230.00 mg/L (0.0-10.00) H 02/01/25 15:46
Ur Squamous Epith Cells 0-2 /LPF (Few) 02/03/25 10:03
Microbiology Results
Micro:
02/01/25 15:46 Blood Culture - Preliminary
Blood/Venous Positive culture in progress
Gram Stain - Preliminary
02/03/25 11:19 Blood Culture - Pending
Blood/Venous
02/03/25 10:03 Urine Culture - Pending
Urine
02/01/25 Unknown Urine Culture - Preliminary
Urine NO GROWTH
02/01/25 16:06 Blood Culture - Preliminary
Blood/Venous Staphylococcus epidermidis
Gram Stain - Preliminary
02/01/25 16:06 Influenza Types A & B (FILI) - Final
Nasal Swab Negative for Influenza A & B, NAAT
Negative results must be combined with clinical observations
and patient history.
Nucleic Acid Amplification test (NAAT)performed on the
[employer] platform.
02/01/25 CXR: Hypoinflation. No acute cardiopulmonary process appreciated.
02/01/25 CT a/p:
5 mm calculus at the right ureterovesical junction with moderate obstructive uropathy.
Extensive postsurgical changes are demonstrated associated with the lower thoracic and lumbar spine with multilevel laminectomies and extensive orthopedic hardware related to spinal fusion. Metal artifact related to spinal fusion limits full
visualization, in addition to severe osseous demineralization.. As far as visualized, no definite acute compression deformity. Irregular defect at the posterior inferior endplate margin of L1 has the appearance of possible Schmorl's node or old
fracture. At the left superior endplate margin of L2, there is a lucent tunnel defect related to a previous pedicle screw which has been removed. Similar bilateral lucent tunnel defects are demonstrated at T11. Endplate margins at L5-S1 are
difficult to assess secondary to severe osseous demineralization and disc space narrowing. Multilevel advanced degenerative disc space narrowing throughout the lumbar spine. At L3-4, there is fusion material within the disc space.
Assessment / Plan
# Staphylococcus epidermidis bacteremia x 2 sets drawn separately
# Fever
# Acute thoracic back pain
# Elevated CRP and ESR
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 albicans) on chronic suppressive doxycycline and fluconazole
# Extensive spine surgeries x 20 with instrumentations
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
# Right obstructive uropathy status post send February 01, OR culture negative
- Given his challenging spine surgeries and infections history, the Staph epidermidis bacteremia is unlikely to be contaminants, especially with 2 sets of blood cultures drawn at least 30 minutes apart and with acute back pain plus fever. The back
pain is located on the thoracic spine and not over the kidney and therefore doubt pyelonephritis as source of fever. Of note OR right ureter culture negative..
- Evaluate for abscess/discitis with MRI without and with contrast STAT.
If MRI is positive for infection, he should be transferred to [facility] under the care of his spine surgeon.
- Repeat blood cultures are pending.
- Continue IV vancomycin.
- Discontinue cefepime.
- Continue suppressive fluconazole.
-Hold doxycycline while on IV vancomycin.
Care Review
Plan reviewed with: Physician (Drs. Ribera, Terrance)
[2025-02-03 17:45] VITALS: BP 141/87
--- NOTE | 2025-02-03 18:31 | W.PN.UPDATE ---
Update Note
Progress Note Update
Spoke with patient and about MRI results, relayed that MRI reading was limited by hardware and could not be diagnostic about presence of infection or abscess. Recommended patient remain to receive IV antibiotics and offered to transfer patient
to [place] where patient has known spine surgeon and infectious disease team. Patient adamant against hospital to hospital transfer and choosing to leave AGAINST MEDICAL ADVICE. Patient adamant about being discharged on oral antibiotics and
reported that he will follow-up with outpatient infectious disease and spine surgeon. After further discussions with patient and patient decided to stay overnight to receive further antibiotic treatment but still wants to leave AGAINST MEDICAL
ADVICE tomorrow.
[2025-02-03] MEDS: DURAGESIC 50 MCG/HR PATCH 1 PATCH TRANSDERM (20:48)
[2025-02-03] MEDS: KLONOPIN 1.5 MG PO (22:08)
[2025-02-03] MEDS: FLOMAX 0.4 MG PO (22:08)
[2025-02-03] MEDS: REMOVE DURAGESIC PATCH REMOVE (22:10)
[2025-02-03 23:16] VITALS: BP 143/93
[2025-02-04] MEDS: VANCOCIN IV (05:26)
--- NOTE | 2025-02-04 06:09 | PTCARENOTE ---
Refusing morning labs and vanco trough. Per [employer], medication not to be started until lab work received. [facility] contacted who confirmed medication is unable to be given without obtaining ordered labs. IV vanco not given. On-call ID provider
made aware via TT.
[2025-02-04 07:04] LABS: Hematocrit 28.5 % (39.0-52.0); Hemoglobin 8.7 g/dL (13.0-18.0); Mean Corp Hgb Conc. 30.5 g/dL (33.0-37.0); Mean Corpuscular Volume 86.9 fL (80.0-94.0); Platelet Count 242 10^3/uL (130-400); Red Cell Dist. Width 14.8 % (11.5-14.5)
[2025-02-04 07:23] LABS: Blood Urea Nitrogen 10 mg/dl (9-20); Calcium 9.4 mg/dl (8.4-10.2); Carbon Dioxide 30 mmol/L (22-30); Chloride 99 mmol/L (98-107); Estimated Creatinine Clearance > 125 ml/min; Glucose 92 mg/dl (70-99); Potassium 3.2 mmol/L (3.5-5.1); Sodium 138 mmol/L (135-145); eGFR > 60.00
[2025-02-04] MEDS: LIDOCAINE 4% PATCH 2 PATCH TOPICAL (07:38)
[2025-02-04] MEDS: SINGULAIR 10 MG PO (07:39)
[2025-02-04] MEDS: METHOCARBAMOL 750 MG PO (07:39)
[2025-02-04] MEDS: LYRICA 200 MG PO (07:39)
[2025-02-04] MEDS: DELTASONE 5 MG PO (07:39)
[2025-02-04] MEDS: COLACE 100 MG PO (07:39)
[2025-02-04] MEDS: CLARITIN 10 MG PO (07:39)
[2025-02-04] MEDS: DIFLUCAN 200 MG PO (07:39)
--- NOTE | 2025-02-04 07:39 | PHA.VAN.FU ---
Vancomycin Assessment / Plan
- Assessment
Renal Function: Stable
WBC's are: Stable
In the past 24 hrs, patient has been: Afebrile
Concomitant Antimicrobials: Fluconazole 200 mg PO daily (suppressive therapy)
- Assessment - Therapeutic Drug Monitoring
Extrapolated Cmax (mcg/mL): 33
Peak level was drawn: Appropriately
Extrapolated Cmin (mcg/mL): 12.3
Trough Drawn: Appropriately (Trough drawn ~1 hour late, patient was refusing lab)
Levels were drawn: At steady state
Calculated AUC (mcg*h/mL): 507
Calculated ke: 0.0898
Calculated half life (H): 7.7
Calculated Vd (L): 43.91
Calculated Vanc CL (ml/min): 65.69
- Dosing Plan
Continue: Vancomycin 1000 mg IV q12h
Dosing Comments: Consider level if renal function changes, otherwise weekly monitoring
- Follow Up
Pharmacy will continue to follow.
Vancomycin Follow UP
- -
Patient Age: 64
Patient Sex: Male
Vancomycin Day #: 4
Indication: Bacteremia
Requesting Provider: Dr Yana Cat
Pertinent Antimicrobial Allergies:
amoxicillin w. rash
Height / Weight:
Height 5 ft 6 in
Actual Weight 86.9 kg
Pertinent Past Medical History: Paraplegia, prior spinal infections on chronic abx, w. altered mental state
- Vital Signs / Lab Results
Temp Pulse Resp BP Pulse Ox
98.9 F 112 20 143/93 100
02/03/25 23:16 02/03/25 23:16 02/03/25 23:16 02/03/25 23:16 02/03/25 23:16
Lab Results - Hematology
02/01/25 02/02/25 02/03/25
15:46 06:01 06:06
WBC 4.9 4.3 L 6.3
02/04/25
06:41
WBC 5.4
Lab Results - Chemistry
02/01/25 02/02/25 02/03/25
15:46 06:01 06:06
BUN 25 H 20 17
Creatinine 0.7 0.5 L 0.5 L
Estimated Creat Clear 110 > 125 > 125
Albumin 3.7
02/04/25
06:41
BUN 10
Creatinine 0.5 L
Estimated Creat Clear > 125
Albumin
02/01/25 02/01/25
15:46 19:45
Lactic Acid 1.0 Cancelled
Lab Results - Urine
02/03/25
10:03
Urine Nitrite (Reflex) Negative
Leukocyte Esterase Rfl 2+ A
Ur Squamous Epith Cells 0-2
Microbiology Results
02/01/25 16:06 Blood Culture - Preliminary
Blood/Venous Staphylococcus epidermidis
Gram Stain - Final
02/01/25 15:46 Blood Culture - Preliminary
Blood/Venous Positive culture in progress
Gram Stain - Preliminary
02/01/25 Unknown Urine Culture - Preliminary
Urine NO GROWTH
Therapeutic Drug Monitoring
Vancomycin Peak 24.6 ug/ml (18-26) 02/03/25 22:01
Vancomycin Trough 11.3 ug/ml (5-20) 02/04/25 06:41
[2025-02-04] MEDS: ROXICODONE 5 MG PO (07:40)
[2025-02-04 08:08] VITALS: BP 152/86
[2025-02-04] MEDS: KCL 40 MEQ PO (09:07)
--- NOTE | 2025-02-04 09:19 | PTCARENOTE ---
Pt and spouse have decided to leave AMA. Dr. Morgan aware, nursing instructional supervisor notified. Spouse was given phone number for medical records to get information released to take to [facility]. IV removed, AMA form signed.
--- NOTE | 2025-02-04 09:21 | W.PN.ID1 ---
Addendum entered and electronically signed by Luba Daugherty MD 02/04/25 11:05:
Received [place]-Text from hospitalist, Dr. Morgan that patient changed his mind, signed out against medical advise and left.
Patient has follow-up appt with his spine surgeon tomorrow.
I called and updated his Infectious Disease physician at [facility], Dr. Clifton Moran.
Of note, hospitalist had sent cefdinir prescription previously for 'UTI', not for bacteremia.
Original Note:
Date of Service
Date of Service: February 04, 2025
Today's Communication
Transfer to [facility]. See below.
Assessment / Plan
# Staphylococcus epidermidis bacteremia x 2 sets drawn 40 min apart
# Fever - resolved
# Severe acute thoracic back pain, persists
# Elevated CRP and ESR
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 albicans) on chronic suppressive doxycycline and fluconazole
# Extensive spine surgeries x 20 with instrumentations at [facility]
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
# Immunocompromised host on biologic for psoriatic arthritis
# Right obstructive uropathy status post send February 01, OR culture negative
- Given his challenging spine surgeries and infections history, the Staph epidermidis bacteremia is unlikely to be contaminants, especially with 2 sets of blood cultures drawn 40 minutes apart and with acute back pain plus fever. The back pain is
located on the thoracic spine and not over the kidney and therefore doubt pyelonephritis as source of fever and not source of back pain. Of note OR right ureter culture negative..
- Unfortunately, MRI T spine wo and w contrast: extremely limited study due to extensive hardware artifacts; cannot exclude discitis/abscess
- Repeat blood cultures are pending.
- Patient has been wanting to leave against medical advice.
I explain to him, importance of discitis, spinal abscess work-up due to his complicated history. He needs repeat MRI with metal artifact reduction technique, if available. If not addressed properly, he can suffer further neurological and/or
septic consequences including . He wants PICC line and go home on IV abx today. I do not recommend putting a PICC line while bacteremic; in addition, set up for outpatient IV antibiotic takes at least 48 hours. Staph epidermides sensitives
have not resulted yet. If leave AMA, unable to prescribe po abx as a bridge until further work-up at [facility] and with his ID physician, Dr. Moran at [facility]; po linezolid is prohibitive due to drug-drug interactions with his fentanyl
and vilazodone.
- I strongly recommend transfer to [facility] under the care of his spine surgeon Dr. Celestin and ID team who know him well. After discussion, patient and are agreeable to have hospitalist team contact Dr. Celestin regarding transfer. I
will update Dr. Moran, his ID physician.
- Continue IV vancomycin for now.
- Continue suppressive fluconazole.
-Hold doxycycline while on IV vancomycin.
Chief Complaint
-: Bacteremia and Other (Acute upper back pain)
Subjective / Review of Systems
at bedside. Per nurse this am, pt refusing Vancomycin because he was planning to go home this am.
Patient c/o severe back pain, unable to sleep overnight.
Vital Signs / Physical Exam
Vital Signs
Vital Signs
Temp Pulse Resp BP Pulse Ox
98.5 F 118 20 152/86 97
02/04/25 08:08 02/04/25 08:08 02/04/25 08:08 02/04/25 08:08 02/04/25 08:08
Physical Exam
Constitutional: Non-toxic
Cardiovascular: S1/S2 (tachycardic)
Pulmonary: Negative Rales
Gastrointestinal: Soft, Non Tender and Non Distended
Extremities: Negative Edema
Musculoskeletal: Spinal Tenderness (posterior mid-lower thorax)
Neurological: AO x 3 and Other (Paraplegia sitting on wheelchair. )
Objective Data
Lab Data
Lab Results
02/04/25 06:41
02/04/25 06:41
ESR 87 mm/hour (0-20) H 02/01/25 15:46
Estimated Creat Clear > 125 ml/min 02/04/25 06:41
Lactic Acid Cancelled 02/01/25 19:45
Total Bilirubin 0.1 mg/dl (0.2-1.3) L 02/01/25 15:46
AST 31 U/L (17-59) 02/01/25 15:46
ALT 20 U/L (0-50) 02/01/25 15:46
Alkaline Phosphatase 104 U/L (38-126) 02/01/25 15:46
C-Reactive Protein 230.00 mg/L (0.0-10.00) H 02/01/25 15:46
Most recent labs reviewed.
Micro Results:
02/03/25 15:26 Blood Culture - Pending
Blood/Venous
02/01/25 16:06 Blood Culture - Preliminary
Blood/Venous Staphylococcus epidermidis
Gram Stain - Final
02/01/25 15:46 Blood Culture - Preliminary
Blood/Venous Positive culture in progress
Gram Stain - Preliminary
02/03/25 11:19 Blood Culture - Pending
Blood/Venous
02/03/25 10:03 Urine Culture - Pending
Urine
02/01/25 Unknown Urine Culture - Preliminary
Urine NO GROWTH
02/01/25 16:06 Influenza Types A & B (FILI) - Final
Nasal Swab Negative for Influenza A & B, NAAT
Negative results must be combined with clinical observations
and patient history.
Nucleic Acid Amplification test (NAAT)performed on the
[employer] platform.
02/01/25 CXR: Hypoinflation. No acute cardiopulmonary process appreciated.
02/01/25 CT a/p:
5 mm calculus at the right ureterovesical junction with moderate obstructive uropathy.
Extensive postsurgical changes are demonstrated associated with the lower thoracic and lumbar spine with multilevel laminectomies and extensive orthopedic hardware related to spinal fusion. Metal artifact related to spinal fusion limits full
visualization, in addition to severe osseous demineralization.. As far as visualized, no definite acute compression deformity. Irregular defect at the posterior inferior endplate margin of L1 has the appearance of possible Schmorl's node or old
fracture. At the left superior endplate margin of L2, there is a lucent tunnel defect related to a previous pedicle screw which has been removed. Similar bilateral lucent tunnel defects are demonstrated at T11. Endplate margins at L5-S1 are
difficult to assess secondary to severe osseous demineralization and disc space narrowing. Multilevel advanced degenerative disc space narrowing throughout the lumbar spine. At L3-4, there is fusion material within the disc space.
Care Review
Plan reviewed with: Physician (Dr. Ribera)
--- NOTE | 2025-02-04 10:21 | CM ---
Chart reviewed. Patient left AMA
--- NOTE | 2025-02-04 13:37 | W.PN.HOSP.TC ---
Addendum entered and electronically signed by David Morgan MD 02/04/25 15:13:
Attending�addendum:
I saw and evaluated the patient. I reviewed the resident�s note and agree with findings and plan as documented in the resident�s note.��patient seen and examined at bedside, at bedside denies any chest pain or shortness of breath, complaining
of back pain.
Physical�exam:
GENERAL : Patient is awake, alert, oriented x3
HEENT: Nonicteric sclerae, PERRLA, EOMI. Oropharynx clear. Moist mucous membranes. Conjunctivae appear well perfused.
CHEST: Chest wall is nontender.
HEART: Regular rate and rhythm without murmurs.
LUNGS: Clear to auscultation bilaterally.
ABDOMEN: Soft, positive bowel sounds, nontender, no organomegaly.
RECTAL: Deferred.
MUSCLES/EXTREMITIES: Back pain.
NEUROLOGIC: Cranial nerves II-XII intact without motor/sensory deficit.
�
Assessment/plan:
Sepsis with acute organ dysfunction.
Staph bacteremia.
Patient signed AGAINST MEDICAL ADVICE knowing the of not receiving IV antibiotic.
Patient stated that he will follow-up with his neurosurgery tomorrow
Patient left the department without getting any discharge instructions or prescriptions.
Discussed with patient and his at bedside.
�
Total time spent on today�s encounter was 55 minutes which included time spent in counseling the patient/family regarding diagnosis and treatment plan as listed above, goals of care, and symptom management. Case was discussed with nursing staff,
specialists, and care coordinators/case management. All labs and imaging personally reviewed by me. Remainder the time spent in detailed review of previous records, lab data, imaging, and other medical provider documentation.
Original Note:
Today's Communication/Plan
-
patient left AMA
Assessment / Plan
Assessment / Plan
64-year-old with partial T4 paraplegia in the setting of of prior multiple back surgeries complicated by prior spinal infections on chronic dicyclomine and fluconazole, hypertension, psoriatic arthritis who presents to the emergency department with
fever and fatigue. Family reports that he was altered but patient currently alert and oriented and able to answer questions appropriately. No focal neurological deficits. He complains of back pain. Has a fever up to 103.4 on arrival. Cov/Flu
negative. U/A negative. CT a/p with 5mm obstructing R distal ureteral stone. Urology was consulted who took patient to the OR for stenting who found purulent urine. Patient was started on broad-spectrum IV antibiotics and aggressive IV fluid
resuscitation. 1 blood culture returned with Staph epidermidis, other blood culture negative, repeating blood cultures.
#Sepsis with encephalopathy 2/2 suspect infected ureteral stone, resolving
#Pyelonephritis
S/p stenting by urology
S/p IV fluid resuscitation
Previous urine cultures with strep agalactiae
blood cultures x 1 Staph epidermidis
Blood culture x 1 staph epi
Possibly contaminant, cannot exclude infected hardware
Repeat blood cultures x 2 positive for staph epi
-Urine culture negative
- broad spec abx with vancomycin
- continue fluconazole & doxycycline
- urology consult, appreciate recs
- ID consult
#Chronic back pain
#T4 paraplegia
#History of spinal surgery
- continue oxycodone
- Continue lyrica
- Lidocaine patches x 2
- prn dilaudid
- CT Thoracic spine, MRI thoracic spine w/wo contrast nondiagnostic of abcess/infection due to hardware
#Psoriatic arthritis
On prednisone 10 mg
- Prednisone tapered to 5mg daily
- will continue 5 daily for now
- am cortisol 5.5
#Essential HTN
SBP in the 100's today consider restarting once SBP improves
- hold lisinopril
#Normocytic anemia, stable
hgb down to 8.8 from 11.8 in September. No evidence of active bleeding or hemolysis at this time.
MCV 85
- trend h/h, type and screen
-Hemoglobin dropped to 7.6, 8.7 today
-Type and cross
- Repeat H&H
- transfuse if Hgb < 7
- iron 21L TIBC 282nl saturation 7%L
- Likely iron deficiency anemia, supplementation after hospitalization
DVT PPX -SCDs
Code status - Full code
Anticipated Discharge: Today
Subjective/Interval History
-
Patient leaving AMA after offer to transfer patient to [facility] to home hospital. Called patients spine surgeon and updated them on clinical picture, they recommended patient stay inpatient but patient had left that time. Patient requesting line for IV
antibiotics but informed patient that is not protocol as he is still bacteremic and could seed infection. Patient was informed of dangers of leaving AMA with active bacteremia, with no sensitivities and lack of appropriate PO abx to DC him on due to
interactions with home meds. Patient verbalized understanding and requested records of hospital stay which were printed and given to patient. Patient left AMA. Date of Service: February 04, 2025
Objective Data
-
Labs:
Laboratory Results
02/04/25
06:41
WBC 5.4
Hgb 8.7 L
Hct 28.5 L
Plt Count 242
Sodium 138
Potassium 3.2 L
Chloride 99
Carbon Dioxide 30
BUN 10
Creatinine 0.5 L
Glucose 92
Calcium 9.4
Vital Signs:
Vital Signs
Temp Pulse Resp BP Pulse Ox
98.5 F 118 20 152/86 99
02/04/25 08:08 02/04/25 08:08 02/04/25 08:08 02/04/25 08:08 02/04/25 08:30
I&O
02/03/25 02/04/25 02/05/25
06:59 06:59 06:59
Intake Total 1170 / 1170 1520 / 1520
Output Total 585 / 585 300 / 300
Balance 585 / 585 1220 / 1220
Review of Systems
-
Unable to obtain full review of systems at this time due to: Other (Patient requesting to leave [place])
History Source: Patient and Family
Constitutional: Denies Fever or Chills
Respiratory: Denies Trouble Breathing
Cardiac: Denies Chest Pain or Palpitations
Abdomen/GI: Denies Nausea or Vomiting
Genitourinary: Denies Dysuria or Difficulty Voiding
Physical Exam
-
General: Well Developed, Well Nourished and No Apparent Distress; Negative Fever
HEENT: Normocephalic and Atraumatic
Respiratory: Clear to Auscultation and Non Labored Respirations; Negative Wheezes or Crackles
Cardiac: Regular Rhythm and S1/S2; Negative Murmur
GI: Soft, Nontender, Nondistended and Normal Bowel Sounds
Musculoskeletal: No Clubbing and No Edema
Skin: Warm and Dry
Neuro: Awake, Alert and Oriented
--- NOTE | 2025-02-04 14:28 | W.DCSUMMARY ---
Addendum entered and electronically signed by David Morgan MD 02/04/25 15:16:
Attending�addendum:
I saw and evaluated the patient. I reviewed the resident�s note and agree with findings and plan as documented in the resident�s note.��patient seen and examined at bedside, at bedside denies any chest pain or shortness of breath, complaining
of back pain.
Physical�exam:
GENERAL : Patient is awake, alert, oriented x3
HEENT: Nonicteric sclerae, PERRLA, EOMI. Oropharynx clear. Moist mucous membranes. Conjunctivae appear well perfused.
CHEST: Chest wall is nontender.
HEART: Regular rate and rhythm without murmurs.
LUNGS: Clear to auscultation bilaterally.
ABDOMEN: Soft, positive bowel sounds, nontender, no organomegaly.
RECTAL: Deferred.
MUSCLES/EXTREMITIES: Back pain.
NEUROLOGIC: Cranial nerves II-XII intact without motor/sensory deficit.
�
Assessment/plan:
Sepsis with acute organ dysfunction.
Staph bacteremia.
Patient signed AGAINST MEDICAL ADVICE knowing the of not receiving IV antibiotic.
Patient stated that he will follow-up with his neurosurgery tomorrow
Patient left the department without getting any discharge instructions or prescriptions.
Discussed with patient and his at bedside.
�
Total time spent on today�s encounter was 40 minutes which included time spent in counseling the patient/family regarding diagnosis and treatment plan as listed above, goals of care, and symptom management. Case was discussed with nursing staff,
specialists, and care coordinators/case management. All labs and imaging personally reviewed by me. Remainder the time spent in detailed review of previous records, lab data, imaging, and other medical provider documentation.
Original Note:
Documented by User: Tara Ribera MD, Resident 02/04/25 15:02
Discharge Summary
Discharge Data
Date of Admission: 02/01/25
Date of Discharge: 02/04/25
-
Pending Results: Yes
Additional Pending Results:
Blood sensitivities
Hospital Course
Discharging Physician :
Dr. Morgan
Dr. Ribera
Disposition :
Left AMA
Primary care physician :
Robby Pierce
Principal Discharge diagnosis :
Sepsis due to ureteral stone with encephalopathy
Chronic Discharge diagnosis :
allergic rhinitis
HTN
BPH
T4 paraplegia
Hospital Course :
Mr. Faustin is a 64-year-old with partial T4 paraplegia in the setting of of prior multiple back surgeries complicated by prior spinal infections on chronic dicyclomine and fluconazole, hypertension, psoriatic arthritis who presents to the emergency
department with fever and fatigue. Family reports that he was altered but patient currently alert and oriented and able to answer questions appropriately. No focal neurological deficits. He complains of back pain. Has a fever up to 103.4 on
arrival. Cov/Flu negative. U/A negative. CT a/p with 5mm obstructing R distal ureteral stone. Urology was consulted who took patient to the OR for stenting who found purulent urine. Patient was started on broad-spectrum IV antibiotics and
aggressive IV fluid resuscitation. On hospital day 1 patient requested to leave AMA on p.o. antibiotics despite no sensitivities from urine culture. Patient's spoke with him and convince him to stay in the hospital pending sensitivities. On
hospital day 2 patient wanted to leave AMA due to increasing back pain despite slight drop in hemoglobin, we repeat H&H which was stable but 2 blood culture returned with Staph epidermidis and ID was consulted. mentioned that patient does not
usually have back pain, and concerned that he might have spinal infection. CT thoracic spine was ordered but nondiagnostic for epidural abscess/infection, MRI was ordered however was nondiagnostic and ID recommended patient transferred to [facility].
However patient resistant to transfer and wanted to leave AMA despite no sensitivities to bacteremia. Patient stayed overnight and we conversed with his spine surgeon at [facility] and attempted hospital to hospital transfer. However patient wanted to
leave AMA and follow-up with his spine surgeon outpatient. Discussed the dangers of leaving with bacteremia without any appropriate antibiotics and no sensitivities. Patient verbalized understanding and requested medical records which were printed
and given to him and . Called patient and back to update them after their AMA discharge that second blood cultures had come back positive.
Important imaging findings :
02/01/25 chest xray:
IMPRESSION:
Hypoinflation. No acute cardiopulmonary process appreciated.
02/01/[address]:
IMPRESSION:
No acute intracranial hemorrhage or extra-axial collection. No mass effect. Minor white matter diminished attenuation, which is nonspecific, likely chronic ischemic change. Differential may include demyelination, gliosis, migraine headaches,
vasculitis, Lyme disease to name a few.
02/01/[address]:
IMPRESSION:
5 mm calculus at the right ureterovesical junction with moderate obstructive uropathy.
Bilateral tiny nonobstructing intrarenal calculi.
Mild colonic fecal burden. No evidence of bowel obstruction.
Mild parenchymal opacity in the posterior lung bases, right greater than left. Probable atelectasis. Pneumonia less likely, though not entirely excluded.
02/01/2025 abdominal x-ray:
FINDINGS/IMPRESSION:
Fluoroscopy provided and static images obtained.
Please refer to comprehensive procedure/operative report for specific and additional details.
02/03/[address] spine:
IMPRESSION: No gross evidence of spinal abscess nor discitis. However, severely limited exam due to metallic artifact and modality limitations. MRI is the study of choice for epidural abscess and discitis.
Small bilateral pleural effusions, right larger than left.
Minimal right lower lobe consolidation likely atelectasis.
02/03/2025 thoracic spine MRI:
IMPRESSION:
Markedly limited exam due to extensive susceptibility artifact throughout the visualized spine from posterior fusion hardware. Evaluation of the spinal canal is nondiagnostic. No overt complications.
Retroperitoneal and paravertebral tissues: Small bilateral pleural effusions. Cholelithiasis.
Procedure findings :
02/01/2025 blood cultures x 2:
Staph epidermidis
02/03/2025 urine culture:
Negative
Discharge Plan
-
Patient Disposition: Against Medical Advice
Discharge Diagnosis/Procedures: Sepsis due to obstructive ureteral stone
Condition: Fair
Diet: As tolerated
Activity: As tolerated
Driving Restrictions: As prior to admission
Referrals:
Mahesh Martini MD [Active, Urology]
Robby Pierce MD [Family Provider, Internal Medicine] - in less than 1 week
Prescriptions:
New
linezolid 600 mg tablet
600 mg PO BID Qty: 4 0RF
Continued
cholecalciferol (vitamin D3) [Vitamin D3] 1,000 UNIT capsule
5,000 unit PO DAILY
vilazodone [Viibryd] 40 MG tablet
40 mg PO DAILY
fentanyl 50 MCG patch 72 hour
50 mcg transdermal Q24H
Rx Instructions:
Please note:Change every 24 hours!
tamsulosin 0.4 MG capsule
0.4 mg PO HS
montelukast 10 MG tablet
10 mg PO DAILY
PreserVision AREDS-2 1 EACH capsule
1 cap PO BID
fluconazole 200 mg Tablet
200 mg PO DAILY
clonazepam [Klonopin] 1 mg Tablet
1.5 mg PO HS
doxycycline hyclate 100 mg Tablet
100 mg PO BID
prednisone 10 mg Tablet
5 mg PO DAILY
omega 1-tib-dsb-fish oil [Fish Oil] 1,000 mg (120 mg-180 mg) Capsule
1 cap PO BID
metaxalone 800 mg Tablet
800 mg PO TID Qty: 0 0RF
magnesium oxide 500 mg magnesium Tablet
500 mg PO HS
loratadine 10 mg Tablet
10 mg PO DAILY
oxycodone 5 mg Tablet
5 mg PO QID
Taltz Syringe 80 mg/mL Syringe
80 mg SC Q8W
docusate sodium [Colace] 100 mg capsule
100 mg PO TID
Theragen Tablet
1 tab PO DAILY
diclofenac potassium [Zipsor] 25 mg Capsule
25 mg PO QID
Glucosamine Chondroitin 550-30-1 mg Capsule
1 cap PO BID
acetaminophen [Tylenol Extra Strength] 500 mg tablet
1,000 mg PO TID
pregabalin [Lyrica] 200 MG capsule
200 mg PO TID
Held
lisinopril 10 mg tablet
10 mg PO DAILY
Hold Instructions: Resume on 02/09/25.
Until seen by PCP
Discharge Orders:
Discharge Patient (As Directed); Ordered 02/02/25
Ordered By: Tara Ribera
Discharge Date and Time
Discharge Date/Time: 02/04/25 10:17
Print Language: ALBANIAN

Documented by User: David Morgan MD 02/04/25 15:15
Discharge Summary
Discharge Data
Date of Admission: 02/01/25
Date of Discharge: 02/04/25
Discharge Plan
-
Patient Disposition: Against Medical Advice
Discharge Diagnosis/Procedures: Sepsis due to obstructive ureteral stone
Condition: Fair
Diet: As tolerated
Activity: As tolerated
Driving Restrictions: As prior to admission
Referrals:
Mahesh Martini MD [Active, Urology]
Robby Pierce MD [Family Provider, Internal Medicine] - in less than 1 week
Prescriptions:
New
linezolid 600 mg tablet
600 mg PO BID Qty: 4 0RF
Continued
cholecalciferol (vitamin D3) [Vitamin D3] 1,000 UNIT capsule
5,000 unit PO DAILY
vilazodone [Viibryd] 40 MG tablet
40 mg PO DAILY
fentanyl 50 MCG patch 72 hour
50 mcg transdermal Q24H
Rx Instructions:
Please note:Change every 24 hours!
tamsulosin 0.4 MG capsule
0.4 mg PO HS
montelukast 10 MG tablet
10 mg PO DAILY
PreserVision AREDS-2 1 EACH capsule
1 cap PO BID
fluconazole 200 mg Tablet
200 mg PO DAILY
clonazepam [Klonopin] 1 mg Tablet
1.5 mg PO HS
doxycycline hyclate 100 mg Tablet
100 mg PO BID
prednisone 10 mg Tablet
5 mg PO DAILY
omega 9-xgg-bdv-fish oil [Fish Oil] 1,000 mg (120 mg-180 mg) Capsule
1 cap PO BID
metaxalone 800 mg Tablet
800 mg PO TID Qty: 0 0RF
magnesium oxide 500 mg magnesium Tablet
500 mg PO HS
loratadine 10 mg Tablet
10 mg PO DAILY
oxycodone 5 mg Tablet
5 mg PO QID
Taltz Syringe 80 mg/mL Syringe
80 mg SC Q8W
docusate sodium [Colace] 100 mg capsule
100 mg PO TID
Theragen Tablet
1 tab PO DAILY
diclofenac potassium [Zipsor] 25 mg Capsule
25 mg PO QID
Glucosamine Chondroitin 550-30-1 mg Capsule
1 cap PO BID
acetaminophen [Tylenol Extra Strength] 500 mg tablet
1,000 mg PO TID
pregabalin [Lyrica] 200 MG capsule
200 mg PO TID
Held
lisinopril 10 mg tablet
10 mg PO DAILY
Hold Instructions: Resume on 02/09/25.
Until seen by PCP
Discharge Orders:
Discharge Patient (As Directed); Ordered 02/02/25
Ordered By: Tara Ribera
Discharge Date and Time
Discharge Date/Time: 02/04/25 10:17
Print Language: ALB[place]
== END 2025-02-04 10:17 | disposition left against medical advice (07) | DRG 853 ==
LOC: 2 SOUTH 21:08
PROVIDERS: Physician Assistant; Student in an Organized Health Care Education/Training Program; ADMITTING PHYSICIAN Internal Medicine; ATTENDING PHYSICIAN General Practice; CONSULT PHYSICIAN Internal Medicine Infectious Disease; CONSULT PHYSICIAN Urology; EMERGENCY PHYSICIAN Emergency Medicine; FAMILY PHYSICIAN Internal Medicine
PROC: 0T768DZ Dilation of Right Ureter with Intraluminal Device, Via Natural or Artificial Opening Endoscopic (ICD-10-PCS; 2025-02-01)
DX: A41.2 Sepsis due to unspecified staphylococcus (principal); G93.41 Metabolic encephalopathy; G82.22 Paraplegia, incomplete; N20.2 Calculus of kidney with calculus of ureter; J98.11 Atelectasis; R65.20 Severe sepsis without septic shock; L40.50 Arthropathic psoriasis, unspecified; Z53.29 Procedure and treatment not carried out because of patient's decision for other reasons; Z79.899 Other long term (current) drug therapy; Z87.442 Personal history of urinary calculi; Z87.891 Personal history of nicotine dependence; Z11.52 Encounter for screening for COVID-19
CPT/HCPCS: 51701; 70450; 71045; 72129; 72157; 74018; 74177; 76000; 80048; 80053; 80202; 81003; 81015; 82533; 82962; 83540; 83550; 83605; 85014; 85018; 85025; 85027; 85045; 85652; 86140; 86850; 86900; 86901; 87040; 87086; 87147; 87154; 87186; 87205; 87502; 87811; 93005; 94760; 96361; 96374; 96375; 99285; A9575; C1769; Q9967

== ENCOUNTER → 2025-02-22 11:28 | Outpatient (REF) | payer BC, SELFPAY ==
[2025-02-22 12:33] LABS: Urine Character Slightly Cloudy (Clear)
[2025-02-22 13:03] LABS: Urine Red Blood Cell 40-50 /HPF (0-2); Urine Squamous Cell 0-2 /LPF (Few)
== END ==
LOC: REG 11:28
PROVIDERS: ATTENDING PHYSICIAN Specialist
DX: N39.0 Urinary tract infection, site not specified (principal)
CPT/HCPCS: 81003; 81015; 87086

== ENCOUNTER 2025-02-28 06:25 | Day surgery (SDC) | payer BC, SELFPAY ==
--- NOTE | 2025-02-26 11:01 | PTCARENOTE ---
Abnormal K+ 3.2 and Hgb 8.7 collected 02/04/25, reported to Autumn at Dr Martini's office.
--- NOTE | 2025-02-26 12:48 | PTCARENOTE ---
Abnormal Lab, Dr. Douglas notified, No additional interventions requested.
[2025-02-28] VITALS (7 sets, daily range): BP systolic 103–125; BP diastolic 66–84; BMI 29.8
[2025-02-28] MEDS: ATIVAN 1 MG PO (11:25)
[2025-02-28] MEDS: NORMOSOL-R/PLASMALYTE-A 1000 IV (11:27)
[2025-02-28] MEDS: ROXICODONE 10 MG PO (14:09)
== END 2025-02-28 14:18 | disposition home or self-care (01) ==
LOC: SDS 06:25
PROVIDERS: ATTENDING PHYSICIAN Specialist
DX: N20.1 Calculus of ureter (principal); Z87.442 Personal history of urinary calculi; Z87.440 Personal history of urinary (tract) infections; Z98.890 Other specified postprocedural states
CPT/HCPCS: 52356; 74018; 76000; 82365; 87086